=== PATIENT | female | born 1990 | race Caucasian/White ===

== ENCOUNTER → 2020-10-29 | Outpatient (CLI) | payer OTHER | END | disposition home or self-care (01) | LOC: LABWHC1 14:12 | PROVIDERS: ATTEND Nurse Practitioner Family | DX: L70.0 Acne vulgaris (principal); L30.8 Other specified dermatitis; D22.5 Melanocytic nevi of trunk | CPT/HCPCS: 36415; 84702 ==

== ENCOUNTER 2020-12-25 14:32 | Emergency (ER) | payer OTHER ==
[2020-12-25 14:44] VITALS: RESP 16; TEMP 98.3
[2020-12-25] MEDS ORDERED: SODIUM CHLORIDE 0.9% 1,000 ML IV STA (15:10)
[2020-12-25] MEDS ORDERED: ONDANSETRON 4 MG/2 ML VIAL IVP STA (15:11)
--- NOTE | 2020-12-25 15:27 | ED ---
General Adult HPI - General Chief complaint: Recheck/Abnormal Lab/Rx Stated complaint: post-op, vomiting Time Seen by Provider: 12/25/20 15:03 Source: patient, RN notes reviewed, old records reviewed Mode of arrival: ambulatory Limitations: no limitations - History of Present Illness Initial comments: 30-year-old female presenting for evaluation of abdominal distention, constipation, vomiting. Patient is 4 days postop left scalp and appendectomy performed at outside hospital. Patient was on vacation over the December and developed appendicitis. She was operated on on December 21. She was discharged in his had some continued abdominal discomfort. No measured fevers. She's had some subjective temperature fluctuation. Patient has had one episode of vomiting. She has not had a bowel movement since prior to the surgery. No drainage or erythema at her incision sites. - Related Data Home Medications Medication Instructions Recorded Confirmed HYDROcodone/APAP 5-325MG [[place] 1 tab PO Q4H PRN 12/25/20 12/25/20 5-325] ISOtretinoin [Accutane] 20 mg PO HS@2030 12/25/20 12/25/20 Ibuprofen [Motrin Ib] 400 mg PO Q8H PRN 12/25/20 12/25/20 Allergies Allergy/AdvReac Type Severity Reaction Status Date / Time cefaclor [From Ceclor] Allergy Rash/Hives Verified 12/25/20 16:55 minocycline Allergy Rash/Hives Verified 12/25/20 16:55 Penicillins Allergy Rash/Hives Verified 12/25/20 16:55 Sulfa (Sulfonamide Allergy Rash/Hives Verified 12/25/20 16:55 Antibiotics) sulfamethoxazole Allergy Rash/Hives Verified 12/25/20 16:55 [From Bactrim] trimethoprim [From Bactrim] Allergy Rash/Hives Verified 12/25/20 16:55 Review of Systems ROS Statement: Those systems with pertinent positive or pertinent negative responses have been documented in the HPI. ROS Other: All systems not noted in ROS Statement are negative. Past Medical History Past Medical History: No Reported History History of Any Multi-Drug Resistant Organisms: None Reported Past Surgical History: Appendectomy Past Psychological History: No Psychological Hx Reported Smoking Status: Never smoker Past Alcohol Use History: Occasional Past Drug Use History: None Reported General Exam Limitations: no limitations General appearance: alert, in no apparent distress Head exam: Present: atraumatic, normocephalic Eye exam: Present: normal appearance, PERRL ENT exam: Present: normal exam Neck exam: Present: normal inspection. Absent: tenderness, meningismus Respiratory exam: Present: normal lung sounds bilaterally. Absent: respiratory distress Cardiovascular Exam: Present: normal rhythm, tachycardia GI/Abdominal exam: Present: soft, distended, tenderness (Very minimal tende rness, appropriate postoperative tenderness.), other (Incisions are well-healed, no Drainage, minimal surrounding erythema.). Absent: guarding, rebound, rigid Extremities exam: Present: normal inspection, normal capillary refill. Absent: pedal edema, calf tenderness Neurological exam: Present: alert, oriented X3, CN II-XII intact. Absent: motor sensory deficit Psychiatric exam: Present: normal affect, normal mood Skin exam: Present: warm, dry, intact. Absent: cyanosis, diaphoretic Course Vital Signs 12/25/20 14:42 Temperature 98.3 F Pulse Rate 111 H Respiratory 16 Rate Blood Pressure 107/69 O2 Sat by Pulse 98 Oximetry Medical Decision Making - Medical Decision Making 30-year-old female with postoperativepatient, abdominal pain, one episode of vomiting. No fever. Patient well-appearing with stable vitals. She has appropriate tenderness following laparoscopic surgery. Incisions are well- healed. X-ray performed that show concern for an ileus and some lower con stipation. She has a mild leukocytosis at 16. May be reactive or may be post emesis. Other laboratory testing including electrolytes is within normal limits, stable hemoglobin. She has a 3+ ketones consistent with dehydration. She's given IV fluids. She also is given an enema and has a large stool output while in the emergency department. She is feeling better and would like a trial at home. She's given strict return parameters including no flatus, no BM, fever, worsening pain. - Lab Data Result diagrams: 12/25/20 15:20 12/25/20 15:20 Lab Results 12/25/20 12/25/20 12/25/20 Range/Units 15:20 15:20 15:20 WBC 15.9 H (3.8-10.6) k/uL RBC 4.62 (3.80-5.40) m/uL Hgb 14.1 (11.4-16.0) gm/dL Hct 41.1 (34.0-46.0) % MCV 89.0 (80.0-100.0) fL MCH 30.5 (25.0-35.0) pg MCHC 34.2 (31.0-37.0) g/dL RDW 12.7 (11.5-15.5) % Plt Count 300 (150-450) k/uL MPV 7.8 Neutrophils % 91 % Lymphocytes % 3 % Monocytes % 3 % Eosinophils % 1 % Basophils % 0 % Neutrophils # 14.5 H (1.3-7.7) k/uL Lymphocytes # 0.5 L (1.0-4.8) k/uL Monocytes # 0.5 (0-1.0) k/uL Eosinophils # 0.2 (0-0.7) k/uL Basophils # 0.0 (0-0.2) k/uL PT 10.5 (9.0-12.0) sec INR 1.0 (<1.2) APTT 23.0 (22.0-30.0) sec Sodium (137-145) mmol/L Potassium (3.5-5.1) mmol/L Chloride (98-107) mmol/L Carbon Dioxide (22-30) mmol/L Anion Gap mmol/L BUN (7-17) mg/dL Creatinine (0.52-1.04) mg/dL Est GFR (CKD-EPI)AfAm (>60 ml/min/1.73 sqM) Est GFR (CKD-EPI)NonAf (>60 ml/min/1.73 sqM) Glucose (74-99) mg/dL Plasma Lactic Acid [place] (0.7-2.0) mmol/L Calcium (8.4-10.2) mg/dL Total Bilirubin (0.2-1.3) mg/dL AST (14-36) U/L ALT (4-34) U/L Alkaline Phosphatase (38-126) U/L Total Protein (6.3-8.2) g/dL Albumin (3.5-5.0) g/dL Amylase (30-110) U/L Lipase (23-300) U/L Urine Color Yellow Urine Appearance Clear (Clear) Urine pH 6.0 (5.0-8.0) Ur Specific [place] 1.018 (1.001-1.035) Urine Protein Trace H (Negative) Urine Glucose (UA) Negative (Negative) Urine Ketones 3+ H (Negative) Urine Blood Negative (Negative) Urine Nitrite Negative (Negative) Urine Bilirubin Negative (Negative) Urine Urobilinogen 3.0 (<2.0) mg/dL Ur Leukocyte Esterase Negative (Negative) Urine HCG, Qual (Not Detectd) 12/25/20 12/25/20 12/25/20 Range/Units 15:20 15:20 15:20 WBC (3.8-10.6) k/uL RBC (3.80-5.40) m/uL Hgb (11.4-16.0) gm/dL Hct (34.0-46.0) % MCV (80.0-100.0) fL MCH (25.0-35.0) pg MCHC (31.0-37.0) g/dL RDW (11.5-15.5) % Plt Count (150-450) k/uL MPV Neutrophils % % Lymphocytes % % Monocytes % % Eosinophils % % Basophils % % Neutrophils # (1.3-7.7) k/uL Lymphocytes # (1.0-4.8) k/uL Monocytes # (0-1.0) k/uL Eosinophils # (0-0.7) k/uL Basophils # (0-0.2) k/uL PT (9.0-12.0) sec INR (<1.2) APTT (22.0-30.0) sec Sodium 136 L (137-145) mmol/L Potassium 4.0 (3.5-5.1) mmol/L Chloride 103 (98-107) mmol/L Carbon Dioxide 26 (22-30) mmol/L Anion Gap 7 mmol/L BUN 10 (7-17) mg/dL Creatinine 0.69 (0.52-1.04) mg/dL Est GFR (CKD-EPI)AfAm >90 (>60 ml/min/1.73 sqM) Est GFR (CKD-EPI)NonAf >90 (>60 ml/min/1.73 sqM) Glucose 112 H (74-99) mg/dL Plasma Lactic Acid [place] 0.9 (0.7-2.0) mmol/L Calcium 8.9 (8.4-10.2) mg/dL Total Bilirubin 0.9 (0.2-1.3) mg/dL AST 35 (14-36) U/L ALT 24 (4-34) U/L Alkaline Phosphatase 173 H (38-126) U/L Total Protein 6.0 L (6.3-8.2) g/dL Albumin 3.4 L (3.5-5.0) g/dL Amylase 41 (30-110) U/L Lipase 36 (23-300) U/L Urine Color Urine Appearance (Clear) Urine pH (5.0-8.0) Ur Specific [place] (1.001-1.035) Urine Protein (Negative) Urine Glucose (UA) (Negative) Urine Ketones (Negative) Urine Blood (Negative) Urine Nitrite (Negative) Urine Bilirubin (Negative) Urine Urobilinogen (<2.0) mg/dL Ur Leukocyte Esterase (Negative) Urine HCG, Qual Not Detected (Not Detectd) Disposition Clinical Impression: Postoperative ileus, Abdominal pain, Dehydration, Status post appendectomy Disposition: HOME SELF-CARE Condition: Good Instructions (If sedation given, give patient instructions): Abdominal Pain (ED), Ileus (ED), Dehydration (ED) Additional Instructions: Please return with worsening or changing symptoms. Return with vomiting or fever. Return with absent bowel movement or not passing gas. Is patient prescribed a controlled substance at d/c from ED?: No Referrals: None,Stated [Primary Care Provider] - 1-2 days Scot Day [STAFF PHYSICIAN] - 1-2 days Татьяна Chang MD [STAFF PHYSICIAN] - 1-2 days Time of Disposition: 18:09
[2020-12-25 15:35] LABS: Basophils % (A) 0 %; Eosinophils # (A) 0.2 k/uL (0-0.7); Eosinophils % (A) 1 %; HCT 41.1 % (34.0-46.0); HGB 14.1 gm/dL (11.4-16.0); Lymphocytes # (A) 0.5 k/uL (1.0-4.8); Lymphocytes % (A) 3 %; MCH 30.5 pg (25.0-35.0); MCHC 34.2 g/dL (31.0-37.0); Mean Platelet Volume 7.8; Monocytes # (A) 0.5 k/uL (0-1.0); Monocytes % (A) 3 %; Neutrophils # (A) 14.5 k/uL (1.3-7.7); Neutrophils % (A) 91 %; Platelet Count 300 k/uL (150-450); RBC 4.62 m/uL (3.80-5.40); RDW 12.7 % (11.5-15.5); WBC 15.9 k/uL (3.8-10.6)
[2020-12-25 15:44] LABS: Prothrombin Time 10.5 sec (9.0-12.0)
[2020-12-25 15:45] LABS: ALT 24 U/L (4-34); AST 35 U/L (14-36); African American GFR (CKD) >90 (>60 ml/min/1.73 sqM); Albumin 3.4 g/dL (3.5-5.0); Alkaline Phosphatase 173 U/L (38-126); Amylase 41 U/L (30-110); Anion Gap 7 mmol/L; Blood Urea Nitrogen 10 mg/dL (7-17); Calcium 8.9 mg/dL (8.4-10.2); Carbon Dioxide 26 mmol/L (22-30); Chloride 103 mmol/L (98-107); Glucose 112 mg/dL (74-99); Lipase 36 U/L (23-300); Non-African American GFR(CKD) >90 (>60 ml/min/1.73 sqM); Sodium 136 mmol/L (137-145); Total Bilirubin 0.9 mg/dL (0.2-1.3)
--- NOTE | 2020-12-25 15:56 | XR ---
EXAMINATION TYPE: XR KUB DATE OF EXAM: 12/25/2020 Comparison: None Clinical History: 30-year-old female abdominal pain, status post appendectomy on 12/21/2020 Findings: Prominent air throughout the colon which measures up to 5.4 cm in caliber. Mild stool wording. Some p rominent small bowel loops measuring up to 2.8 cm may have small air-fluid levels. Multiple areas of skin toyin likely relating to laparoscopy portals. IUD is present. No evidence for free intraperito tasha air. Impression: Prominent air throughout the colon. Some prominent small bowel loops measuring up to 2.8 cm show smal l air-fluid levels. Consider a generalized ileus. Skin toyin at various sites, likely relating to l aparoscopy portals. No free air.
[2020-12-25 16:31] LABS: Appearance,Urine Clear (Clear); Bilirubin,Urine Negative (Negative); Blood,Urine Negative (Negative); Color,Urine Yellow; Glucose,Urine (UA) Negative (Negative); Ketones,Urine 3+ (Negative); Leukocyte Esterase,Urine Negative (Negative); Nitrite,Urine Negative (Negative); Protein,Urine Trace (Negative); Specific Gravity,Urine 1.018 (1.001-1.035)
[2020-12-25] MEDS ORDERED: KETOROLAC 15 MG/ML 1 ML VIAL IVP STA (16:36)
[2020-12-25] MEDS ORDERED: SODIUM CHLORIDE 0.9% 500 ML 500 ML IV ONE (16:36)
[2020-12-25 18:52] VITALS: BP 124/79; PULSE 92
== END 2020-12-25 18:52 | disposition home or self-care (01) ==
LOC: EC 14:32
DX: K91.89 Other postprocedural complications and disorders of digestive system (principal); K56.7 Ileus, unspecified; E86.0 Dehydration; Z88.0 Allergy status to penicillin; Z88.1 Allergy status to other antibiotic agents; Z88.2 Allergy status to sulfonamides; Z90.89 Acquired absence of other organs
CPT/HCPCS: 36415; 80053; 82150; 83605; 83690; 85025; 85610; 85730; 81003; 81025; 74018; 96374; 96375; 96361 ×2; 99284; J2405; J1885

== ENCOUNTER 2020-12-25 22:02 | Inpatient (IN) | payer OTHER ==
[2020-12-25] MEDS ORDERED: ONDANSETRON 4 MG/2 ML VIAL IVP STA (22:24)
[2020-12-25] MEDS ORDERED: MORPHINE SULFATE 4 MG/ML SYRINGE IV STA (22:24)
[2020-12-25] MEDS ORDERED: SODIUM CHLORIDE 0.9% 1,000 ML IV STA (22:24)
--- NOTE | 2020-12-25 22:25 | ED ---
Recheck HPI - General Chief Complaint: Recheck/Abnormal Lab/Rx Stated Complaint: Post op fever Time Seen by Provider: 12/25/20 22:20 Source: patient, RN notes reviewed, old records reviewed Mode of arrival: ambulatory Limitations: no limitations - History of Present Illness Initial Comments: This is a 30-year-old female DF for evaluation. Patient is postop appendix surgery. Outside facility. Patient seen in ER earlier today in regards to postoperative abdominal pain. Told to come back if pain persists or fever develops MD Complaint: abnormal lab (pain post appendix pain) -: days(s) Returns Today for: persistent/worsening pain related to initial visit Symptoms Since Prior Visit: no new symptoms Context: other (none) Associated Symptoms: none Treatments Prior to Arrival: other (none) - Related Data Home Medications Medication Instructions Recorded Confirmed HYDROcodone/APAP 5-325MG [[place] 1 tab PO Q4H PRN 12/25/20 12/25/20 5-325] ISOtretinoin [Accutane] 20 mg PO HS@2030 12/25/20 12/25/20 Ibuprofen [Motrin Ib] 400 mg PO Q8H PRN 12/25/20 12/25/20 Allergies Allergy/AdvReac Type Severity Reaction Status Date / Time cefaclor [From Ceclor] Allergy Rash/Hives Verified 12/25/20 23:40 minocycline Allergy Rash/Hives Verified 12/25/20 23:40 Penicillins Allergy Rash/Hives Verified 12/25/20 23:40 Sulfa (Sulfonamide Allergy Rash/Hives Verified 12/25/20 23:40 Antibiotics) sulfamethoxazole Allergy Rash/Hives Verified 12/25/20 23:40 [From Bactrim] trimethoprim [From Bactrim] Allergy Rash/Hives Verified 12/25/20 23:40 Review of Systems ROS Statement: Those systems with pertinent positive or pertinent negative responses have been documented in the HPI. ROS Other: All systems not noted in ROS Statement are negative. Past Medical History Past Medical History: No Reported History History of Any Multi-Drug Resistant Organisms: None Reported Past Surgical History: Appendectomy Past Psychological History: No Psychological Hx Reported Smoking Status: Never smoker Past Alcohol Use History: Occasional Past Drug Use History: None Reported General Exam Limitations: no limitations General appearance: alert, in no apparent distress Head exam: Present: atraumatic, normocephalic, normal inspection Eye exam: Present: normal appearance, PERRL, EOMI. Absent: scleral icterus, conjunctival injection, periorbital swelling ENT exam: Present: normal exam, mucous membranes moist Neck exam: Present: normal inspection. Absent: tenderness, meningismus, lymphadenopathy Respiratory exam: Present: normal lung sounds bilaterally. Absent: respiratory distress, wheezes, rales, rhonchi, stridor Cardiovascular Exam: Present: regular rate, normal rhythm, normal heart sounds. Absent: systolic murmur, diastolic murmur, rubs, gallop, clicks GI/Abdominal exam: Present: soft, normal bowel sounds. Absent: distended, tenderness, guarding, rebound, rigid Extremities exam: Present: normal inspection, full ROM, normal capillary refill. Absent: tenderness, pedal edema, joint swelling, calf tenderness Back exam: Present: normal inspection Neurological exam: Present: alert, oriented X3, CN II-XII intact Psychiatric exam: Present: normal affect, normal mood Skin exam: Present: warm, dry, intact, normal color. Absent: rash Course Vital Signs 12/25/20 12/25/20 22:04 22:49 Temperature 98 F Pulse Rate 105 H 88 Respiratory 16 22 Rate Blood Pressure 107/67 109/79 O2 Sat by Pulse 96 98 Oximetry - Reevaluation(s) Reevaluation #1: 12/25/20 22:30 Medical record is reviewed 12/25/20 22:30 Patient's prior ER visit has been reviewed Medical Decision Making - Medical Decision Making 30 female to the ER for evaluation. Patient comes in for persistent abdominal pain after surgery she is about 4-5 days NOW. Surgery happened on vacation she is unsure Dr. her perform the surgery were patient presents today for evaluation of pain. Patient will be admitted as she has postoperative abscess - Lab Data Result diagrams: 12/25/20 22:33 12/25/20 22:33 Lab Results 12/25/20 12/25/20 12/25/20 Range/Units 22:33 22:33 22:33 WBC 13.3 H (3.8-10.6) k/uL RBC 4.19 (3.80-5.40) m/uL Hgb 12.7 (11.4-16.0) gm/dL Hct 37.4 (34.0-46.0) % MCV 89.3 (80.0-100.0) fL MCH 30.2 (25.0-35.0) pg MCHC 33.9 (31.0-37.0) g/dL RDW 13.3 (11.5-15.5) % Plt Count 284 (150-450) k/uL MPV 7.8 Neutrophils % 85 % Lymphocytes % 9 % Monocytes % 4 % Eosinophils % 1 % Basophils % 0 % Neutrophils # 11.3 H (1.3-7.7) k/uL Lymphocytes # 1.1 (1.0-4.8) k/uL Monocytes # 0.5 (0-1.0) k/uL Eosinophils # 0.1 (0-0.7) k/uL Basophils # 0.1 (0-0.2) k/uL PT 10.5 (9.0-12.0) sec INR 1.0 (<1.2) APTT 23.1 (22.0-30.0) sec Sodium (137-145) mmol/L Potassium (3.5-5.1) mmol/L Chloride (98-107) mmol/L Carbon Dioxide (22-30) mmol/L Anion Gap mmol/L BUN (7-17) mg/dL Creatinine (0.52-1.04) mg/dL Est GFR (CKD-EPI)AfAm (>60 ml/min/1.73 sqM) Est GFR (CKD-EPI)NonAf (>60 ml/min/1.73 sqM) Glucose (74-99) mg/dL Plasma Lactic Acid [place] (0.7-2.0) mmol/L Calcium (8.4-10.2) mg/dL Total Bilirubin (0.2-1.3) mg/dL AST (14-36) U/L ALT (4-34) U/L Alkaline Phosphatase (38-126) U/L Creatine Kinase (30-135) U/L Total Protein (6.3-8.2) g/dL Albumin (3.5-5.0) g/dL Amylase (30-110) U/L Lipase (23-300) U/L Urine Color Light Yellow Urine Appearance Clear (Clear) Urine pH 6.0 (5.0-8.0) Ur Specific [place] 1.029 (1.001-1.035) Urine Protein Negative (Negative) Urine Glucose (UA) Negative (Negative) Urine Ketones 1+ H (Negative) Urine Blood Negative (Negative) Urine Nitrite Negative (Negative) Urine Bilirubin Negative (Negative) Urine Urobilinogen <2.0 (<2.0) mg/dL Ur Leukocyte Esterase Negative (Negative) 12/25/20 12/25/20 Range/Units 22:33 22:33 WBC (3.8-10.6) k/uL RBC (3.80-5.40) m/uL Hgb (11.4-16.0) gm/dL Hct (34.0-46.0) % MCV (80.0-100.0) fL MCH (25.0-35.0) pg MCHC (31.0-37.0) g/dL RDW (11.5-15.5) % Plt Count (150-450) k/uL MPV Neutrophils % % Lymphocytes % % Monocytes % % Eosinophils % % Basophils % % Neutrophils # (1.3-7.7) k/uL Lymphocytes # (1.0-4.8) k/uL Monocytes # (0-1.0) k/uL Eosinophils # (0-0.7) k/uL Basophils # (0-0.2) k/uL PT (9.0-12.0) sec INR (<1.2) APTT (22.0-30.0) sec Sodium 138 (137-145) mmol/L Potassium 3.7 (3.5-5.1) mmol/L Chloride 106 (98-107) mmol/L Carbon Dioxide 23 (22-30) mmol/L Anion Gap 9 mmol/L BUN 9 (7-17) mg/dL Creatinine 0.70 (0.52-1.04) mg/dL Est GFR (CKD-EPI)AfAm >90 (>60 ml/min/1.73 sqM) Est GFR (CKD-EPI)NonAf >90 (>60 ml/min/1.73 sqM) Glucose 127 H (74-99) mg/dL Plasma Lactic Acid [place] 0.9 (0.7-2.0) mmol/L Calcium 8.5 (8.4-10.2) mg/dL Total Bilirubin 0.5 (0.2-1.3) mg/dL AST 31 (14-36) U/L ALT 22 (4-34) U/L Alkaline Phosphatase 153 H (38-126) U/L Creatine Kinase 28 L (30-135) U/L Total Protein 5.8 L (6.3-8.2) g/dL Albumin 3.2 L (3.5-5.0) g/dL Amylase 39 (30-110) U/L Lipase 46 (23-300) U/L Urine Color Urine Appearance (Clear) Urine pH (5.0-8.0) Ur Specific [place] (1.001-1.035) Urine Protein (Negative) Urine Glucose (UA) (Negative) Urine Ketones (Negative) Urine Blood (Negative) Urine Nitrite (Negative) Urine Bilirubin (Negative) Urine Urobilinogen (<2.0) mg/dL Ur Leukocyte Esterase (Negative) - Radiology Data Radiology results: report reviewed (CT abdomen and pelvis positive postoperative abscess), image reviewed Disposition Clinical Impression: Abdominal pain, Postoperative abscess Disposition: ADMITTED IP TO THIS HOSP Condition: Fair Is patient prescribed a controlled substance at d/c from ED?: No Referrals: None,Stated [Primary Care Provider] - 1-2 days
[2020-12-25 22:50] LABS: Basophils # (A) 0.1 k/uL (0-0.2); Basophils % (A) 0 %; Eosinophils # (A) 0.1 k/uL (0-0.7); Eosinophils % (A) 1 %; HCT 37.4 % (34.0-46.0); HGB 12.7 gm/dL (11.4-16.0); Lymphocytes # (A) 1.1 k/uL (1.0-4.8); Lymphocytes % (A) 9 %; MCH 30.2 pg (25.0-35.0); MCHC 33.9 g/dL (31.0-37.0); MCV 89.3 fL (80.0-100.0); Mean Platelet Volume 7.8; Monocytes # (A) 0.5 k/uL (0-1.0); Monocytes % (A) 4 %; Neutrophils # (A) 11.3 k/uL (1.3-7.7); Neutrophils % (A) 85 %; Platelet Count 284 k/uL (150-450); RBC 4.19 m/uL (3.80-5.40); RDW 13.3 % (11.5-15.5); WBC 13.3 k/uL (3.8-10.6)
[2020-12-25 22:58] LABS: Partial Thromboplastin Time 23.1 sec (22.0-30.0); Prothrombin Time 10.5 sec (9.0-12.0)
[2020-12-25 22:59] LABS: ALT 22 U/L (4-34); AST 31 U/L (14-36); African American GFR (CKD) >90 (>60 ml/min/1.73 sqM); Albumin 3.2 g/dL (3.5-5.0); Alkaline Phosphatase 153 U/L (38-126); Amylase 39 U/L (30-110); Anion Gap 9 mmol/L; Blood Urea Nitrogen 9 mg/dL (7-17); Calcium 8.5 mg/dL (8.4-10.2); Carbon Dioxide 23 mmol/L (22-30); Chloride 106 mmol/L (98-107); Creatine Kinase 28 U/L (30-135); Glucose 127 mg/dL (74-99); Lipase 46 U/L (23-300); Non-African American GFR(CKD) >90 (>60 ml/min/1.73 sqM); Potassium 3.7 mmol/L (3.5-5.1); Sodium 138 mmol/L (137-145); Total Bilirubin 0.5 mg/dL (0.2-1.3); Total Protein 5.8 g/dL (6.3-8.2)
[2020-12-25 23:57] LABS: Appearance,Urine Clear (Clear); Bilirubin,Urine Negative (Negative); Blood,Urine Negative (Negative); Color,Urine Light Yellow; Glucose,Urine (UA) Negative (Negative); Ketones,Urine 1+ (Negative); Leukocyte Esterase,Urine Negative (Negative); Nitrite,Urine Negative (Negative); Protein,Urine Negative (Negative); Specific Gravity,Urine 1.029 (1.001-1.035); Urobilinogen,Urine <2.0 mg/dL (<2.0)
--- NOTE | 2020-12-26 00:03 | CT ---
EXAMINATION TYPE: CT abdomen pelvis w con DATE OF EXAM: 12/25/2020 COMPARISON: HISTORY: pain CT DLP: 897.50 mGycm Automated exposure control for dose reduction was used. CONTRAST: Performed with IV Contrast, patient injected with 100 mL of Isovue 300. There is minimal pleural thickening and fluid at the lung bases. Heart size is normal. There is no pe ricardial effusion. Liver spleen stomach pancreas gallbladder appear intact. The bile ducts are not dilated. There is no adrenal mass. Kidneys show satisfactory contrast opacification. There is no hydronephrosi s. The ureters are not dilated. There is no retroperitoneal adenopathy. Bladder distends smoothly. Th ere is IUD in the uterine fundus. Uterus is anteverted. There is no free fluid in the pelvis. There is small amount of low-density fluid in the left paracolic gutter. There is 6.2 x 4.2 cm comple x mass in the pelvis which is adjacent to the small bowel in the pelvis and contains air and fluid an d debris. This appears to be extraluminal. There are some distended gas-filled loops of large bowel i n the mid abdomen. There are surgical clips at the cecum probably from appendectomy. Appendix is not seen. The lumbar vertebra have normal alignment. There is no compression fracture. Disc spaces are normal. The bony pelvis appears intact. IMPRESSION: Complex large mass in the pelvis consistent with an abscess that may be communicating with loop of ad jacent small bowel. Follow-up recommended. There is evidence of some mild large bowel ileus. There is some fluid in the left paracolic gutter likely inflammatory.
[2020-12-26] MEDS ORDERED: ONDANSETRON 4 MG/2 ML VIAL IVP PRN (00:15)
[2020-12-26] MEDS ORDERED: NALOXONE 0.4 MG/ML 1 ML VIAL IV PRN (00:15)
[2020-12-26] MEDS ORDERED: LEVOFLOXACIN 750MG-D5W PMX 750 MG in DEXTROSE/WATER 1 150ML.BAG IVPB STA (00:18)
[2020-12-26] MEDS ORDERED: metroNIDAZOLE-NS PMX 500 MG in SALINE 1 100ML.BAG IVPB STA (00:18)
[2020-12-26] MEDS: MORPHINE SULFATE 4 MG/ML SYRINGE IV PRN ×2 (02:03→06:34)
[2020-12-26] MEDS ORDERED: HYDROcodone/APAP 5-325MG 1 EACH TAB PO STA (06:25)
[2020-12-26] MEDS ORDERED: ACETAMINOPHEN IV (For NPO) 1,000 MG in EMPTY BAG 1 BAG IVPB ONE (09:26)
--- NOTE | 2020-12-26 09:32 | P.GSHP ---
History of Present Illness H&P Date: 12/26/20 Chief Complaint: Abdominal abscess 30-year-old female presents to the hospital yesterday twice with complaints of abdominal pain. She underwent laparoscopic appendectomy on Tuesday and was discharged shortly after surgery was performed. She says that since the surgery she has felt some mild nausea and bloating. Some lower abdominal pain. Some pressure-like sensation. Yesterday she had a enema with bowel function and felt a little bit better. She went home from the ER only to have a high fever and come back to the ER for that reason. CAT scan was performed. Her white blood cell count elevated at 13. CAT scan demonstrated a greater than 6 cm abscess between small bowel loops containing both liquid and air. Patient still feels nauseated. No vomiting. No bowel function. - Review of Systems Comment: The patient denies any acute changes in vision or hearing, no dysphagia or odynophagia, no chest pain or shortness of breath, no dysuria or hematuria, no headache, no runny nose, no rectal bleeding or melena, no unexplained weight loss Past Medical History Past Medical History: No Reported History History of Any Multi-Drug Resistant Organisms: None Reported Past Surgical History: Appendectomy Past Psychological History: No Psychological Hx Reported Smoking Status: Never smoker Past Alcohol Use History: Occasional Past Drug Use History: None Reported Medications and Allergies Home Medications Medication Instructions Recorded Confirmed Type HYDROcodone/APAP 5-325MG [[place] 1 tab PO Q4H PRN 12/25/20 12/25/20 History 5-325] ISOtretinoin [Accutane] 20 mg PO HS@2030 12/25/20 12/25/20 History Ibuprofen [Motrin Ib] 400 mg PO Q8H PRN 12/25/20 12/25/20 History Allergies Allergy/AdvReac Type Severity Reaction Status Date / Time cefaclor [From Ceclor] Allergy Rash/Hives Verified 12/25/20 23:40 minocycline Allergy Rash/Hives Verified 12/25/20 23:40 Penicillins Allergy Rash/Hives Verified 12/25/20 23:40 Sulfa (Sulfonamide Allergy Rash/Hives Verified 12/25/20 23:40 Antibiotics) sulfamethoxazole Allergy Rash/Hives Verified 12/25/20 23:40 [From Bactrim] trimethoprim [From Bactrim] Allergy Rash/Hives Verified 12/25/20 23:40 Surgical - Exam Vital Signs Temp Pulse Resp BP Pulse Ox 98 F 105 H 16 107/67 96 12/25/20 22:04 12/25/20 22:04 12/25/20 22:04 12/25/20 22:04 12/25/20 22:04 Physical exam: General: Well-developed, well-nourished HEENT: Normocephalic, sclerae nonicteric Abdomen: Mildly distended, infraumbilical suprapubic and left lower quadrant incisions with toyin in place, mild diffuse tenderness increase in the lower a bdomen, no erythema or drainage from incision sites Extremities: No edema Neuro: Alert and oriented Results - Labs 12/25/20 22:33 12/25/20 22:33 Abnormal Lab Results - Last 24 Hours (Table) 12/25/20 12/25/20 12/25/20 Range/Units 22:33 22:33 22:33 WBC 13.3 H (3.8-10.6) k/uL Neutrophils # 11.3 H (1.3-7.7) k/uL Glucose 127 H (74-99) mg/dL Alkaline Phosphatase 153 H (38-126) U/L Creatine Kinase 28 L (30-135) U/L Total Protein 5.8 L (6.3-8.2) g/dL Albumin 3.2 L (3.5-5.0) g/dL Urine Ketones 1+ H (Negative) Diabetes panel 12/25/20 Range/Units 22:33 Sodium 138 (137-145) mmol/L Potassium 3.7 (3.5-5.1) mmol/L Chloride 106 (98-107) mmol/L Carbon Dioxide 23 (22-30) mmol/L BUN 9 (7-17) mg/dL Creatinine 0.70 (0.52-1.04) mg/dL Glucose 127 H (74-99) mg/dL Calcium 8.5 (8.4-10.2) mg/dL AST 31 (14-36) U/L ALT 22 (4-34) U/L Alkaline Phosphatase 153 H (38-126) U/L Total Protein 5.8 L (6.3-8.2) g/dL Albumin 3.2 L (3.5-5.0) g/dL Calcium panel 12/25/20 Range/Units 22:33 Calcium 8.5 (8.4-10.2) mg/dL Albumin 3.2 L (3.5-5.0) g/dL Pituitary panel 12/25/20 Range/Units 22:33 Sodium 138 (137-145) mmol/L Potassium 3.7 (3.5-5.1) mmol/L Chloride 106 (98-107) mmol/L Carbon Dioxide 23 (22-30) mmol/L BUN 9 (7-17) mg/dL Creatinine 0.70 (0.52-1.04) mg/dL Glucose 127 H (74-99) mg/dL Calcium 8.5 (8.4-10.2) mg/dL Adrenal panel 12/25/20 Range/Units 22:33 Sodium 138 (137-145) mmol/L Potassium 3.7 (3.5-5.1) mmol/L Chloride 106 (98-107) mmol/L Carbon Dioxide 23 (22-30) mmol/L BUN 9 (7-17) mg/dL Creatinine 0.70 (0.52-1.04) mg/dL Glucose 127 H (74-99) mg/dL Calcium 8.5 (8.4-10.2) mg/dL Total Bilirubin 0.5 (0.2-1.3) mg/dL AST 31 (14-36) U/L ALT 22 (4-34) U/L Alkaline Phosphatase 153 H (38-126) U/L Total Protein 5.8 L (6.3-8.2) g/dL Albumin 3.2 L (3.5-5.0) g/dL Assessment and Plan (1) Postoperative abscess Narrative/Plan: 30-year-old female with abscess post appendectomy. Options reviewed. Recommend laparoscopic possible open drainage at this time. We will schedule for lapa roscopic drainage abdominal abscess, possible laparotomy. Potential need for bowel resection discussed with patient. Risks of bleeding, infection, recurrent abscess, scarring, bladder in bowel injury, leak, possible need for long-term antibiotics. She understands and wishes to proceed. We'll consult hospitalist and infectious disease service. Surgery will be scheduled for today however patient informed that the operating room schedule is quite busy and we may have to postpone the distal tomorrow morning. Current Visit: Yes Status: Acute Code(s): T81.49XA - INFECTION FOLLOWING A PROCEDURE, OTHER SURGICAL SITE, INIT SNOMED Code(s): 805325621
[2020-12-26] MEDS ORDERED: HEPARIN SODIUM,PORCINE/PF 5,000 UNIT/0.5 ML SYRINGE SQ ONE (09:48)
[2020-12-26] MEDS: D5-0.45% NACL WITH KCL 20MEQ/L 1,000 ML IV SCH ×3 (09:55→21:33)
[2020-12-26] MEDS: HEPARIN SODIUM,PORCINE/PF 5,000 UNIT/0.5 ML SYRINGE SQ SCH ×3 (10:00→23:36)
[2020-12-26] MEDS: HYDROmorphone 1 MG/ML 1 ML SYRINGE IVP PRN ×2 (10:17→14:43)
[2020-12-26] MEDS: metroNIDAZOLE-NS PMX 500 MG in SALINE 1 100ML.BAG IVPB SCH ×2 (10:19→20:16)
[2020-12-26] MEDS ORDERED: LACTATED RINGERS 1,000 ML IV ONE (15:39)
--- NOTE | 2020-12-26 16:02 | P.CON ---
Consult Note - . Consult date: 12/26/20 Assessment/Plan:: Reason for consult - medical management Ms. Adam is a 30-year-old female with no significant past medical history, who [place], and had left sided abdominal pain. She underwent laparoscopic appendectomy on December 21 and discharged shortly after the surgery. Patient states since having the surgery and she felt that her left- sided abdominal pain persisted and she was also having pressure like sensation and was feeling very bloated. She states that the abdominal pain is worse in the left lower quadrant, and whenever she has to pass gas and feels that gas is moving in her belly her pain is worse. She denied having any nausea or vomiting. Patient denied having any fevers chills or rigors. Patient was in the ER yesterday for continued abdominal pain and subjective fevers with one episode of vomiting. She had x-ray of the abdomen performed showing ileus and mild leukocytosis. She was given IV fluids and fifth and anymore she had large stool output and she felt better and she was discharged home. But after going home patient started to have fever and so she came back to the ER last night again. So the patient had a CAT scan of the abdomen and pelvis last night that showed complex large mass in the pelvis consistent with an abscess that may be communicating with lupus adjacent small bowel. And evidence of large bowel ileus with some fluid in the left paracolic gutter likely inflammatory. In the ER patient's T-max is 98.3, tachycardic at 110, blood pressure 124/79 and saturating at 100% on room air. Patient had labs drawn showing white count of 13.3, hemoglobin 12.7, platelets 284. Sodium 138, but urgency 0.7, chloride 106, bicarbonate 20, bili and 9, creatinine 0.7. UA is negative for nitrites and leukocyte esterase. Urine beta-hCG negative. The patient is admitted for further management after being started on IV antibiotics in the form of aztreonam and Flagyl as the patient has multiple drug ALLERGIES REVIEW OF SYSTEMS: CONSTITUTIONAL: Fever and generalized weakness HEENT: No headache, no neck stiffness, no blurring of vision CARDIOVASCULAR: no chest pain or palpitations PULMONARY: No cough or difficulty in breathing GASTROINTESTINAL: Nausea and vomiting NEUROLOGICAL: No weakness of extremities HEMATOLOGICAL: Denies any bleeding or petechiae. GENITOURINARY: Denies any burning micturition, frequency, or urgency. MUSCULOSKELETAL/RHEUMATOLOGICAL: Denies any joint pain, swelling, or any muscle pain. ENDOCRINE: Denies polyuria polydipsia or heat or cold intolerance The rest of the 14-point review of systems is negative. Past Medical History Past Medical History: No Reported History History of Any Multi-Drug Resistant Organisms: None Reported Past Surgical History: Appendectomy Past Psychological History: No Psychological Hx Reported Smoking Status: Never smoker Past Alcohol Use History: Occasional Past Drug Use History: None Reported Medications and Allergies Home Medications Medication Instructions Recorded Confirmed Type HYDROcodone/APAP 5-325MG [[place] 1 tab PO Q4H PRN 12/25/20 12/25/20 History 5-325] ISOtretinoin [Accutane] 20 mg PO HS@2030 12/25/20 12/25/20 History Ibuprofen [Motrin Ib] 400 mg PO Q8H PRN 12/25/20 12/25/20 History Allergies Allergy/AdvReac Type Severity Reaction Status Date / Time cefaclor [From Ceclor] Allergy Rash/Hives Verified 12/25/20 23:40 minocycline Allergy Rash/Hives Verified 12/25/20 23:40 Penicillins Allergy Rash/Hives Verified 12/25/20 23:40 Sulfa (Sulfonamide Allergy Rash/Hives Verified 12/25/20 23:40 Antibiotics) sulfamethoxazole Allergy Rash/Hives Verified 12/25/20 23:40 [From Bactrim] trimethoprim [From Bactrim] Allergy Rash/Hives Verified 12/25/20 23:40 Physical Exam Vitals: Vital Signs Temp Pulse Pulse Resp BP BP Pulse Ox 12/26/20 13:43 98.5 F 75 17 110/76 98 12/26/20 07:28 97 18 117/74 99 12/26/20 06:21 81 16 123/76 98 12/26/20 01:07 76 18 120/82 100 12/26/20 00:07 82 16 113/71 99 12/25/20 23:07 75 18 110/84 100 12/25/20 22:49 88 22 109/79 98 12/25/20 22:04 98 F 105 H 16 107/67 96 PHYSICAL EXAMINATION: GENERAL: no acute distress. Complaining of pain in the left lower quadrant HEENT: Pupils are round and equally reacting to light. EOMI. No scleral icterus. No conjunctival pallor. CARDIOVASCULAR: S1 and S2 present. No murmurs, rubs, or gallops. PULMONARY: Bilateral breath sounds positive. No wheeze or crackles.. ABDOMEN: Soft, positive for tenderness in the left lower quadrant, normal bowel sounds. No guarding or rigidity. Surgical clips in place, surgical site looks clean and dry MUSCULOSKELETAL: No joint swelling or deformity. EXTREMITIES: No edema NEUROLOGICAL: Gross neurological examination did not reveal any focal deficits. SKIN:No rash Results CBC & Chem 7: 12/25/20 22:33 12/25/20 22:33 Labs: Abnormal Lab Results - Last 24 Hours (Table) 12/25/20 12/25/20 12/25/20 Range/Units 22:33 22:33 22:33 WBC 13.3 H (3.8-10.6) k/uL Neutrophils # 11.3 H (1.3-7.7) k/uL Glucose 127 H (74-99) mg/dL Alkaline Phosphatase 153 H (38-126) U/L Creatine Kinase 28 L (30-135) U/L Total Protein 5.8 L (6.3-8.2) g/dL Albumin 3.2 L (3.5-5.0) g/dL Urine Ketones 1+ H (Negative) Thrombosis Risk Factor Assmnt - Choose All That Apply Each Risk Factor Represents 2 Points: Laparoscopic surgery, Major surgery Thrombosis Risk Factor Assessment Total Risk Factor Score: 4 Thrombosis Risk Factor Assessment Level: Moderate Risk ASSESSMENT Left lower quadrant abdominal pain secondary to abscess Postoperative abscess Leukocytosis Mild protein calorie malnutrition Elevated alkaline phosphatase PLAN: Patient has been started on antibiotics in the form of his aztreonam and Flagyl due to multiple drug ALLERGIES. Nothing by mouth and IV fluids She is being boarded for surgery this afternoon for Iand D Symptomatic management with antiemetics Protonix for GI prophylaxis Heparin for DVT prophylaxis Further recommendations to follow depending on the progress of the patient Thank you for the consultation
[2020-12-26] MEDS ORDERED: SCOPOLAMINE 1.5MG/72HR PATCH TRANSDERM ONE (16:04)
[2020-12-26] MEDS: ONDANSETRON 4 MG/2 ML VIAL IVP PRN (16:04)
[2020-12-26] MEDS ORDERED: HYDROmorphone 0.5 MG/0.5 ML SYRINGE IVP ONE ×3 (16:12→18:01)
[2020-12-26] MEDS ORDERED: fentaNYL (PF) 50 MCG/ML 2 ML AMP ONE (16:52)
[2020-12-26] MEDS ORDERED: KETOROLAC 15 MG/ML 1 ML VIAL ONE (16:52)
[2020-12-26] MEDS ORDERED: DEXAMETHASONE SOD PHOSPHATE 10 MG/ML 1 ML VIAL ONE (16:52)
[2020-12-26] MEDS ORDERED: ONDANSETRON 4 MG/2 ML VIAL ONE (16:52)
[2020-12-26] MEDS ORDERED: LIDOCAINE 1% INJ 10MG/ML (20 ML MDV) ONE (16:52)
[2020-12-26] MEDS ORDERED: SUGAMMADEX SODIUM 500 MG/5 ML SDV IV ONE (16:52)
[2020-12-26] MEDS ORDERED: ROCURONIUM 10 MG/ML (5 ML VIAL) IV ONE (16:52)
[2020-12-26] MEDS ORDERED: PROPOFOL 10 MG/ML 20 ML VIAL IV ONE (16:52)
[2020-12-26] MEDS ORDERED: MIDAZOLAM 2 MG/2 ML VIAL ONE (16:52)
[2020-12-26] MEDS: AZTREONAM 2 GM in SODIUM CHLORIDE 0.9% 100 ML IVPB SCH ×2 (17:00→23:36)
[2020-12-26] MEDS ORDERED: BUPIVACAINE (PF) 0.25% 30 ML VIAL SQ ONE ×2 (17:24)
--- NOTE | 2020-12-26 17:51 | P.OP ---
Date of Procedure: 12/26/20 Procedure(s) Performed: PREOPERATIVE DIAGNOSIS: Abdominal abscess POSTOPERATIVE DIAGNOSIS: Same PROCEDURE: Laparoscopic drainage of abdominal abscess SURGEON: Nataliia EBL: 5 mL ANESTHESIA: Oral COMPLICATIONS: None OPERATIVE PROCEDURE: Patient placed in the operating table in the supine position. The patient was placed under general anesthesia. A 5 mm optical trocar was used to enter the abdomen in the left upper quadrant. Full insufflation took place to 15 mmHg. An additional 5 mm trocar was placed th rough the previous left lower quadrant 12 mm trocar site laterally. There were no adhesions seen to the abdominal wall. There was no free fluid or purulence noted. The patient's sigmoid colon was somewhat distended. The small bowel was adherent to the medial aspect of the sigmoid colon. This was where we suspected to find the abscess cavity. As I retracted the small bowel away from the sigmo id colon a purulent fluid collection was encountered. This measured approximate 6 cm as the CAT scan described. This had some fibropurulent fluid that was evacuated fully. The full extent of the abscess was thought to be visualized. The bowel was palpated and I was not able to visualize any evidence of perforation of the colon or small bowel at that time. Cultures were taken of the fluid. The trocar in the left lower quadrant was removed in a 19-[place] SOUTH drain was advanced into the abscess cavity. The drain was then sutured to the skin using a 3-0 silk stitch. The pneumoperitoneum was evacuated. The skin at the entrance trocar site was closed using a 4-0 Monocryl stitch. A another 4-0 Monocryl subcuticular suture was placed at the left lower quadrant 12 mm site adjacent to the drain. The previous toyin at the infraumbilical and suprapubic incision site were removed. I then placed skin glue on our initial trocar entrance in the left upper quadrant and the suprapubic incision site. We used Steri-Strips at the infraumbilical incision as there was mild separation of the skin superficially and I was not comfortable with skin glue in that location. No glue or Steri-Strips were placed at the drain site incision. Sterile dressings over the drain were placed. Pictures were taken and shown to the family postoperatively. DISPOSITION: Stable to recovery room
[2020-12-26] MEDS: ACETAMINOPHEN TAB 325 MG TAB PO PRN (19:30)
[2020-12-26] MEDS: HYDROcodone/APAP 5-325MG 1 EACH TAB PO PRN (21:38)
[2020-12-27] MEDS: HYDROcodone/APAP 5-325MG 1 EACH TAB PO PRN ×5 (01:38→20:12)
[2020-12-27] MEDS ORDERED: LEVOFLOXACIN 750MG-D5W PMX 750 MG in DEXTROSE/WATER 1 150ML.BAG IVPB SCH (02:00)
[2020-12-27] MEDS: metroNIDAZOLE-NS PMX 500 MG in SALINE 1 100ML.BAG IVPB SCH ×4 (03:02→20:14)
[2020-12-27] MEDS: D5-0.45% NACL WITH KCL 20MEQ/L 1,000 ML IV SCH ×3 (05:03→20:13)
[2020-12-27] MEDS: AZTREONAM 2 GM in SODIUM CHLORIDE 0.9% 100 ML IVPB SCH ×3 (07:57→23:07)
[2020-12-27] MEDS: HEPARIN SODIUM,PORCINE/PF 5,000 UNIT/0.5 ML SYRINGE SQ SCH ×3 (07:58→23:06)
[2020-12-27 08:41] LABS: Basophils % (A) 0 %; Eosinophils % (A) 0 %; HCT 36.7 % (34.0-46.0); HGB 12.5 gm/dL (11.4-16.0); Lymphocytes # (A) 0.8 k/uL (1.0-4.8); Lymphocytes % (A) 8 %; MCH 30.8 pg (25.0-35.0); MCV 90.5 fL (80.0-100.0); Mean Platelet Volume 7.9; Monocytes # (A) 0.3 k/uL (0-1.0); Monocytes % (A) 3 %; Neutrophils % (A) 88 %; Platelet Count 276 k/uL (150-450); RBC 4.05 m/uL (3.80-5.40); WBC 10.2 k/uL (3.8-10.6)
[2020-12-27 08:58] LABS: ALT 17 U/L (4-34); AST 19 U/L (14-36); African American GFR (CKD) >90 (>60 ml/min/1.73 sqM); Albumin 2.9 g/dL (3.5-5.0); Albumin/Globulin Ratio 1.2; Alkaline Phosphatase 114 U/L (38-126); Anion Gap 6 mmol/L; Blood Urea Nitrogen 7 mg/dL (7-17); Calcium 8.8 mg/dL (8.4-10.2); Carbon Dioxide 24 mmol/L (22-30); Chloride 107 mmol/L (98-107); Globulin 2.5 g/dL; Glucose 163 mg/dL (74-99); Non-African American GFR(CKD) >90 (>60 ml/min/1.73 sqM); Potassium 4.8 mmol/L (3.5-5.1); Sodium 137 mmol/L (137-145); Total Bilirubin 0.3 mg/dL (0.2-1.3); Total Protein 5.4 g/dL (6.3-8.2)
[2020-12-27] MEDS ORDERED: PANTOPRAZOLE 40 MG/10 ML VIAL IV SCH (09:00)
--- NOTE | 2020-12-27 10:12 | P.PN ---
Subjective Progress Note Date: 12/27/20 Principal diagnosis: Abdominal abscess Patient feels better today. She has ambulated. Drain is seropurulent. She is afebrile. White blood cell count normalized. Objective - Vital Signs Vital signs: Vital Signs Temp 97.7 F 12/27/20 06:51 Pulse 53 L 12/27/20 06:51 Resp 17 12/27/20 06:51 BP 97/62 12/27/20 06:51 Pulse Ox 97 12/27/20 06:51 Intake & Output 12/26/20 12/27/20 12/27/20 18:59 06:59 18:59 Intake Total 900 Output Total 85 160 Balance 815 -160 Intake: IV 900 Output: Drainage 160 Abdomen 160 Estimated Blood Loss 85 Other: # Voids 1 2 - Exam Abdomen: Soft, nondistended, mild diffuse tenderness, incisions clean and dry, drain in place - Labs CBC & Chem 7: 12/27/20 08:00 12/27/20 08:00 Labs: Abnormal Lab Results - Last 24 Hours (Table) 12/27/20 12/27/20 Range/Units 08:00 08:00 Neutrophils # 9.0 H (1.3-7.7) k/uL Lymphocytes # 0.8 L (1.0-4.8) k/uL Glucose 163 H (74-99) mg/dL Total Protein 5.4 L (6.3-8.2) g/dL Albumin 2.9 L (3.5-5.0) g/dL Microbiology - Last 24 Hours (Table) 12/26/20 17:30 Gram Stain - Preliminary Aspirate Body Fluid Culture - Preliminary 12/26/20 17:30 Anaerobic Culture - Preliminary Aspirate 12/26/20 17:30 Fungal Culture - Preliminary Aspirate Assessment and Plan (1) Postoperative abscess Narrative/Plan: Patient improving at this time. Continue drain to suction. Continue antibiotics. Follow cultures. Keep nothing by mouth until bowel function improved. Current Visit: Yes Status: Acute Code(s): T81.49XA - INFECTION FOLLOWING A PROCEDURE, OTHER SURGICAL SITE, INIT SNOMED Code(s): 293604231
--- NOTE | 2020-12-27 11:40 | P.PN ---
Subjective Reason for consult - medical management Ms. Adam is a 30-year-old female with no significant past medical history, who went up north on a vacation trip, and had left sided abdominal pain. She underwent laparoscopic appendectomy on December 21 and discharged shortly after the surgery. Patient states since having the surgery and she felt that her left- sided abdominal pain persisted and she was also having pressure like sensation and was feeling very bloated. She states that the abdominal pain is worse in the left lower quadrant, and whenever she has to pass gas and feels that gas is moving in her belly her pain is worse. She denied having any nausea or vomiting. Patient denied having any fevers chills or rigors. Patient was in the ER yesterday for continued abdominal pain and subjective fevers with one episode of vomiting. She had x-ray of the abdomen performed showing ileus and mild leukocytosis. She was given IV fluids and fifth and anymore she had large stool output and she felt better and she was discharged home. But after going home patient started to have fever and so she came back to the ER last night again. So the patient had a CAT scan of the abdomen and pelvis last night that showed complex large mass in the pelvis consistent with an abscess that may be communicating with lupus adjacent small bowel. And evidence of large bowel ileus with some fluid in the left paracolic gutter likely inflammatory. In the ER patient's T-max is 98.3, tachycardic at 110, blood pressure 124/79 and saturating at 100% on room air. Patient had labs drawn showing white count of 13.3, hemoglobin 12.7, platelets 284. Sodium 138, but urgency 0.7, chloride 106, bicarbonate 20, bili and 9, creatinine 0.7. UA is negative for nitrites and leukocyte esterase. Urine beta-hCG negative. The patient is admitted for further management after being started on IV antibiotics in the form of aztreonam and Flagyl as the patient has multiple drug ALLERGIES 12/27/2020 and patient still has significant drainage from the surgical drain patient had laparoscopic surgical drainage of the abscess. Patient is presently on levofloxacin,metronidazole and Azetreonam PHYSICAL EXAMINATION: GENERAL: no acute distress. Complaining of pain in the left lower quadrant HEENT: Pupils are round and equally reacting to light. EOMI. No scleral icterus. No conjunctival pallor. CARDIOVASCULAR: S1 and S2 present. No murmurs, rubs, or gallops. PULMONARY: Bilateral breath sounds positive. No wheeze or crackles.. ABDOMEN: Soft, positive for tenderness in the left lower quadrant, normal bowel sounds. No guarding or rigidity. Surgical clips in place, surgical site looks clean and dry MUSCULOSKELETAL: No joint swelling or deformity. EXTREMITIES: No edema NEUROLOGICAL: Gross neurological examination did not reveal any focal deficits. SKIN:No rash ASSESSMENT Left lower quadrant abdominal pain secondary to abscess Postoperative abscess Leukocytosis Mild protein calorie malnutrition Elevated alkaline phosphatase PLAN: Patient has been started on antibiotics in the form of his aztreonam and Flagyl due to multiple drug ALLERGIES. Nothing by mouth and IV fluids She is being boarded for surgery this afternoon for Iand D Symptomatic management with antiemetics Protonix for GI prophylaxis Heparin for DVT prophylaxis Objective - Vital Signs Vital signs: Vital Signs Temp 97.7 F 12/27/20 06:51 Pulse 53 L 12/27/20 06:51 Resp 17 12/27/20 06:51 BP 97/62 12/27/20 06:51 Pulse Ox 97 12/27/20 06:51 Intake & Output 12/26/20 12/27/20 12/27/20 18:59 06:59 18:59 Intake Total 900 Output Total 85 160 Balance 815 -160 Intake: IV 900 Output: Drainage 160 Abdomen 160 Estimated Blood Loss 85 Other: # Voids 1 2 - Labs CBC & Chem 7: 12/27/20 08:00 12/27/20 08:00 Labs: Abnormal Lab Results - Last 24 Hours (Table) 12/27/20 12/27/20 Range/Units 08:00 08:00 Neutrophils # 9.0 H (1.3-7.7) k/uL Lymphocytes # 0.8 L (1.0-4.8) k/uL Glucose 163 H (74-99) mg/dL Total Protein 5.4 L (6.3-8.2) g/dL Albumin 2.9 L (3.5-5.0) g/dL Microbiology - Last 24 Hours (Table) 12/26/20 17:30 Gram Stain - Preliminary Aspirate Body Fluid Culture - Preliminary 12/26/20 17:30 Anaerobic Culture - Preliminary Aspirate 12/26/20 17:30 Fungal Culture - Preliminary Aspirate
--- NOTE | 2020-12-27 12:00 | CONS ---
CONSULTATION DATE OF SERVICE: 12/26/2020 REASON FOR CONSULTATION: Intraabdominal abscess. HISTORY OF PRESENT ILLNESS: The patient is a 30-year-old female who recently admitted at [facility] on December 21, 2020. The patient presented with abdominal pain. She was diagnosed with appendicitis, status post laparoscopic appendectomy. The patient was discharged home. A few hours later, the patient mentioned she could have a problem with abdominal pain since her surgery. The pain continued to get worse and the patient was having constipation with no bowel movement since her surgery. The patient did mention that with these symptoms, she did present to the ER yesterday where the patient did have enema given. After, the patient did have relief of constipation, and the patient was subsequently discharged home. However, few hours after getting home, the patient started having a fever of 103 degrees Fahrenheit, for which the patient presented back to the hospital. The patient complaining of abdominal pain to be sharp. Intensity was almost 10/10 in severity with associated nausea. Did have an episode of vomiting. Denies having any bowel movement since being in the hospital. With these symptoms, the patient was evaluated by the ER physician. On arrival to the ER, the patient was afebrile. The patient did have a white count of 13.3. Pulse rate was slightly elevated. Urine was negative. The patient did have a CT of abdomen and pelvis completed, which did show a complex large mass in the pelvis consistent with an abscess that may be communicated with loop of adjacent small bowel and some large bowel ileus. The patient was started on Levaquin and Flagyl because of her multiple antibiotic allergies. Infectious Disease was consulted for further management of antibiotic therapy. REVIEW OF SYSTEMS: Positive points have been mentioned in HPI. Rest of systems are negative. PAST MEDICAL HISTORY: No major illnesses except recent appendicitis. PAST SURGICAL HISTORY: Laparoscopic appendectomy. SOCIAL HISTORY: No history of smoking. Occasionally drinks. No drug use. FAMILY HISTORY: No pertinent findings noticed. ALLERGIES: MULTIPLE MEDICATIONS, INCLUDING CEFACLOR, PENICILLIN, SULFA, TRIMETHOPRIM, MINOCYCLINE, all of them with serum sickness. MEDICATIONS: The patient is currently on Tylenol, [place], she is on Dilaudid, Flagyl Levaquin, Protonix, Narcan, and IV fluid. PHYSICAL EXAMINATION: Blood pressure 118/71 with a pulse of 90, temperature 98.8, she is 98% room air. The patient is a middle-aged female, lying in bed, in no distress. No tachypnea or accessory muscles of respiration use. HEENT: Examination shows no pallor or scleral icterus. Oral mucous membrane is dry. NECK: Trachea central. No thyromegaly. LUNGS: Unlabored breathing, clear to auscultation anteriorly. No wheeze or crackle. HEART: S1, S2. Regular rate. ABDOMEN: Soft. She did have mild distention and tenderness, no guarding or rigidity. EXTREMITIES: No edema feet. SKIN: No rash or mass palpable. NEUROLOGIC: The patient is awake, alert, oriented. Mood and affect normal. LABS: Hemoglobin is 12.1, white count 13.3, BUN of 9, creatinine 0.70. DIAGNOSTIC IMPRESSION AND PLAN: Patient admitted to the hospital with sepsis. The patient had fever, elevated white count, tachycardia. Source abdominal abscess. The patient did have recent appendectomy, likely need to cover for the enteric gram-negative both aerobes and anaerobes. Patient did have multiple antibiotic allergies that will limit the number of antibiotics safe to use. PLAN: 1. Continue patient on Flagyl. Discontinue Levaquin and prescribe Azactam 2 grams q.8 hours. 2. Await laparoscopic or surgical drainage of this abscess, should be sent for culture. 3. Discharge medications based on the culture report. Thank you for this consultation. Will follow this patient along with you. MMCHARLYL / DEVORAN: [id number] /
--- NOTE | 2020-12-27 16:12 | PN ---
PROGRESS NOTE DATE OF SERVICE: 12/27/2020 REASON FOR FOLLOWUP: Pelvic abscess. INTERVAL HISTORY: The patient is currently afebrile, the patient is breathing comfortably. The patient denies having any chest pain. No shortness of breath or cough. Abdominal pain is currently controlled. She is status post laparoscopic drainage of the pelvic abscess, tolerated the procedure. PHYSICAL EXAMINATION: Blood pressure 97/60 with a pulse of 53, temperature 97.7. She is 97% on room air. GENERAL DESCRIPTION: Is a middle-aged female lying in bed, in no distress. RESPIRATORY SYSTEM: Unlabored breathing, clear to auscultation anteriorly. HEART: S1, S2. Regular rate. ABDOMEN: Soft, no tenderness, no rigidity. LABS: Hemoglobin is 10.5, white count 10.2, BUN of 7, creatinine 0.56. DIAGNOSTIC IMPRESSION AND PLAN: Patient with pelvic abscess with recent appendectomy likely abdominal source, status post laparoscopic drainage. Will wait for the culture to finalize. Continue Azactam and Flagyl. Discharge antibiotic on the basis of culture report. Continue supportive care. MMODL / IJN: [id number] /
[2020-12-28] MEDS: D5-0.45% NACL WITH KCL 20MEQ/L 1,000 ML IV SCH (01:27)
[2020-12-28] MEDS: metroNIDAZOLE-NS PMX 500 MG in SALINE 1 100ML.BAG IVPB SCH ×3 (02:18→19:08)
[2020-12-28] MEDS: HYDROmorphone 1 MG/ML 1 ML SYRINGE IVP PRN (05:36)
--- NOTE | 2020-12-28 07:56 | P.PN ---
Subjective Reason for consult - medical management Ms. Adam is a 30-year-old female with no significant past medical history, who went [place], and had left sided abdominal pain. She underwent laparoscopic appendectomy on December 21 and discharged shortly after the surgery. Patient states since having the surgery and she felt that her left- sided abdominal pain persisted and she was also having pressure like sensation and was feeling very bloated. She states that the abdominal pain is worse in the left lower quadrant, and whenever she has to pass gas and feels that gas is moving in her belly her pain is worse. She denied having any nausea or vomiting. Patient denied having any fevers chills or rigors. Patient was in the ER yesterday for continued abdominal pain and subjective fevers with one episode of vomiting. She had x-ray of the abdomen performed showing ileus and mild leukocytosis. She was given IV fluids and fifth and anymore she had large stool output and she felt better and she was discharged home. But after going home patient started to have fever and so she came back to the ER last night again. So the patient had a CAT scan of the abdomen and pelvis last night that showed complex large mass in the pelvis consistent with an abscess that may be communicating with lupus adjacent small bowel. And evidence of large bowel ileus with some fluid in the left paracolic gutter likely inflammatory. In the ER patient's T-max is 98.3, tachycardic at 110, blood pressure 124/79 and saturating at 100% on room air. Patient had labs drawn showing white count of 13.3, hemoglobin 12.7, platelets 284. Sodium 138, but urgency 0.7, chloride 106, bicarbonate 20, bili and 9, creatinine 0.7. UA is negative for nitrites and leukocyte esterase. Urine beta-hCG negative. The patient is admitted for further management after being started on IV antibiotics in the form of aztreonam and Flagyl as the patient has multiple drug ALLERGIES 12/27/2020 and patient still has significant drainage from the surgical drain patient had laparoscopic surgical drainage of the abscess. Patient is presently on levofloxacin,metronidazole and Azetreonam 11/28/2020 Patient has little bit of nausea secondary to antibiotics she remains on same antibiotics.. Patient was comparing of restless leg yesterday because of which patient was started on Requip with improved symptoms patient will be continued on same dose of Requip. IV fluids will be switched to D5 normal saline with the 10 of K. Basic metabolic profile will be obtained. Patient is passing gas. Constitutional: Denied any fatigue denied any fever. Cardio vascular: denied any chest pain, palpitations Gastrointestinal as mentioned above Pulmonary: Denied any shortness of breath cough Neurologic denied any new focal deficits All inpatient medications were reviewed and appropriate changes in these medications as dictated in the interval history and assessment and plan. PHYSICAL EXAMINATION: GENERAL: no acute distress. Complaining of pain in the left lower quadrant HEENT: Pupils are round and equally reacting to light. EOMI. No scleral icterus. No conjunctival pallor. CARDIOVASCULAR: S1 and S2 present. No murmurs, rubs, or gallops. PULMONARY: Bilateral breath sounds positive. No wheeze or crackles.. ABDOMEN: Soft, positive for tenderness in the left lower quadrant, normal bowel sounds. No guarding or rigidity. Surgical clips in place, surgical site looks clean and dry MUSCULOSKELETAL: No joint swelling or deformity. EXTREMITIES: No edema NEUROLOGICAL: Gross neurological examination did not reveal any focal deficits. SKIN:No rash ASSESSMENT Left lower quadrant abdominal pain secondary to abscess is post abscess drainage Postoperative abscess Leukocytosis -Restless leg syndrome Elevated alkaline phosphatase nonspecific elevation no further workup. PLAN: Patient has been started on antibiotics in the form of his aztreonam and Flagyl due to multiple drug ALLERGIES. Nothing by mouth and IV fluids She is being boarded for surgery this afternoon for Iand D Symptomatic management with antiemetics Protonix for GI prophylaxis Heparin for DVT prophylaxis Objective - Vital Signs Vital signs: Vital Signs Temp 98.2 F 12/28/20 06:57 Pulse 75 12/28/20 06:57 Resp 18 12/28/20 06:57 BP 89/55 12/28/20 06:57 Pulse Ox 96 12/28/20 06:57 Intake & Output 12/27/20 12/28/20 12/28/20 18:59 06:59 18:59 Output Total 75 Balance -75 Output: Drainage 75 Abdomen 75 Other: Voiding Method Toilet # Voids 2 1 - Labs CBC & Chem 7: 12/27/20 08:00 12/27/20 08:00 Labs: Abnormal Lab Results - Last 24 Hours (Table) 12/27/20 12/27/20 Range/Units 08:00 08:00 Neutrophils # 9.0 H (1.3-7.7) k/uL Lymphocytes # 0.8 L (1.0-4.8) k/uL Glucose 163 H (74-99) mg/dL Total Protein 5.4 L (6.3-8.2) g/dL Albumin 2.9 L (3.5-5.0) g/dL Microbiology - Last 24 Hours (Table) 12/26/20 17:30 Gram Stain - Preliminary Aspirate Body Fluid Culture - Preliminary Alpha Hemolytic Streptococcus
[2020-12-28] MEDS ORDERED: D5-0.9% NACL WITH KCL 20 MEQ/L 1,000 ML IV SCH (08:00)
[2020-12-28] MEDS ORDERED: POTASSIUM CHLORIDE IV SCH ×2 (08:00)
[2020-12-28] MEDS ORDERED: DEXTROSE IV SCH ×2 (08:00)
[2020-12-28] MEDS ORDERED: DEXTROSE 5%-0.9% NACL 1,000 ML with POTASSIUM CHLORIDE 20 MEQ IV SCH ×2 (08:00)
[2020-12-28] MEDS ORDERED: NACL IV SCH ×2 (08:00)
[2020-12-28] MEDS: ACETAMINOPHEN TAB 325 MG TAB PO PRN (08:10)
[2020-12-28] MEDS: PANTOPRAZOLE 40 MG TABLET PO SCH (08:11)
[2020-12-28] MEDS: AZTREONAM 2 GM in SODIUM CHLORIDE 0.9% 100 ML IVPB SCH ×3 (08:11→23:49)
[2020-12-28] MEDS: HEPARIN SODIUM,PORCINE/PF 5,000 UNIT/0.5 ML SYRINGE SQ SCH ×2 (08:11→17:15)
--- NOTE | 2020-12-28 08:51 | P.PN ---
Subjective Progress Note Date: 12/28/20 Principal diagnosis: Abdominal abscess Patient feels slightly better. She did have flatus once. No bowel movement. Some nausea. No vomiting. Still with abdominal cramps. Still feels bloated. SOUTH drain becoming more serous. She is afebrile. Objective - Vital Signs Vital signs: Vital Signs Temp 98.2 F 12/28/20 06:57 Pulse 75 12/28/20 06:57 Resp 18 12/28/20 06:57 BP 89/55 12/28/20 06:57 Pulse Ox 96 12/28/20 06:57 Intake & Output 12/27/20 12/28/20 12/28/20 18:59 06:59 18:59 Output Total 75 Balance -75 Output: Drainage 75 Abdomen 75 Other: Voiding Method Toilet # Voids 2 1 - Exam Abdomen: Soft, distended, mild tenderness, incisions clean and dry - Labs CBC & Chem 7: 12/27/20 08:00 12/27/20 08:00 Labs: Abnormal Lab Results - Last 24 Hours (Table) 12/27/20 Range/Units 08:00 Glucose 163 H (74-99) mg/dL Total Protein 5.4 L (6.3-8.2) g/dL Albumin 2.9 L (3.5-5.0) g/dL Microbiology - Last 24 Hours (Table) 12/26/20 17:30 Gram Stain - Preliminary Aspirate Body Fluid Culture - Preliminary Alpha Hemolytic Streptococcus Assessment and Plan (1) Postoperative abscess Narrative/Plan: Patient gradually improving. Continue broad-spectrum antibiotics. Follow cultures. Keep nothing by mouth except for ice and popsicles. Add Toradol for pain control. Ambulate. Current Visit: Yes Status: Acute Code(s): T81.49XA - INFECTION FOLLOWING A PROCEDURE, OTHER SURGICAL SITE, INIT SNOMED Code(s): 049139349
[2020-12-28] MEDS: KETOROLAC 15 MG/ML 1 ML VIAL IVP SCH ×3 (11:10→23:49)
[2020-12-28] MEDS: NACL IV SCH ×4 (11:13→20:55)
[2020-12-28] MEDS: DEXTROSE IV SCH ×4 (11:13→20:55)
[2020-12-28] MEDS: POTASSIUM CHLORIDE IV SCH ×4 (11:13→20:55)
[2020-12-28] MEDS ORDERED: LORazepam 2 MG/ML INJ IV PRN (20:22)
[2020-12-28] MEDS ORDERED: LORazepam 0.5 MG TAB PO PRN (20:24)
[2020-12-28] MEDS: ONDANSETRON 4 MG/2 ML VIAL IVP PRN (20:55)
[2020-12-29] MEDS: HEPARIN SODIUM,PORCINE/PF 5,000 UNIT/0.5 ML SYRINGE SQ SCH ×4 (00:14→23:54)
[2020-12-29] MEDS: metroNIDAZOLE-NS PMX 500 MG in SALINE 1 100ML.BAG IVPB SCH ×3 (02:48→19:12)
[2020-12-29] MEDS: NACL IV SCH ×4 (02:50→07:05)
[2020-12-29] MEDS: DEXTROSE IV SCH ×4 (02:50→07:05)
[2020-12-29] MEDS: POTASSIUM CHLORIDE IV SCH ×4 (02:50→07:05)
[2020-12-29] MEDS: KETOROLAC 15 MG/ML 1 ML VIAL IVP SCH ×4 (05:43→23:54)
--- NOTE | 2020-12-29 06:45 | PN ---
PROGRESS NOTE DATE OF SERVICE: 12/28/2020 REASON FOR FOLLOWUP: Pelvic abscess. INTERVAL HISTORY: Patient is afebrile. The patient is breathing comfortably. The patient denies having any chest pain, shortness of breath or cough. Abdominal pain is currently controlled. No nausea, no vomiting or diarrhea. PHYSICAL EXAMINATION: Her blood pressure is 98/68 with a pulse of 71, temperature 98.5. She is 96% on room air. General description is a middle-aged female lying in bed in no distress. Respiratory system: Unlabored breathing. Clear to auscultation anteriorly. Heart S1, S2. Regular rate and rhythm. Abdomen: Soft, mildly tender. No guarding. No rigidity. LABS: No new labs have been obtained today. Abdominal culture with alpha hemolytic Streptococcus. DIAGNOSTIC IMPRESSION AND PLAN: Patient with pelvic abscess with recent appendicitis status post appendectomy and drainage of the pelvic abscess. Culture with alpha hemolytic Streptococcus. Patient did have MULTIPLE ANTIBIOTIC ALLERGIES and is currently covered with Azactam and Flagyl. Plan is to finish therapy with oral Levaquin and Flagyl as the patient is requesting to go the IV antibiotic therapy. Continue supportive care. MMODL / IJN: [id number] /
[2020-12-29] MEDS: PANTOPRAZOLE 40 MG TABLET PO SCH (07:06)
[2020-12-29] MEDS: AZTREONAM 2 GM in SODIUM CHLORIDE 0.9% 100 ML IVPB SCH ×3 (07:06→23:46)
[2020-12-29 07:50] LABS: Basophils % (A) 0 %; Eosinophils # (A) 0.2 k/uL (0-0.7); Eosinophils % (A) 3 %; HCT 36.4 % (34.0-46.0); HGB 12.5 gm/dL (11.4-16.0); Lymphocytes # (A) 1.7 k/uL (1.0-4.8); Lymphocytes % (A) 23 %; MCH 30.7 pg (25.0-35.0); MCHC 34.3 g/dL (31.0-37.0); MCV 89.5 fL (80.0-100.0); Mean Platelet Volume 7.5; Monocytes # (A) 0.4 k/uL (0-1.0); Monocytes % (A) 5 %; Neutrophils # (A) 4.8 k/uL (1.3-7.7); Neutrophils % (A) 66 %; Platelet Count 335 k/uL (150-450); RBC 4.07 m/uL (3.80-5.40); RDW 13.1 % (11.5-15.5); WBC 7.2 k/uL (3.8-10.6)
[2020-12-29 08:08] LABS: African American GFR (CKD) >90 (>60 ml/min/1.73 sqM); Anion Gap 6 mmol/L; Blood Urea Nitrogen 8 mg/dL (7-17); Calcium 8.6 mg/dL (8.4-10.2); Carbon Dioxide 24 mmol/L (22-30); Chloride 109 mmol/L (98-107); Glucose 104 mg/dL (74-99); Non-African American GFR(CKD) >90 (>60 ml/min/1.73 sqM); Potassium 4.4 mmol/L (3.5-5.1); Sodium 139 mmol/L (137-145)
--- NOTE | 2020-12-29 13:52 | P.PN ---
Subjective Progress Note Date: 12/29/20 Reason for consult - medical management Ms. dAam is a 30-year-old female with no significant past medical history, who went up north on a vacation trip, and had left sided abdominal pain. She underwent laparoscopic appendectomy on December 21 and discharged shortly after the surgery. Patient states since having the surgery and she felt that her left- sided abdominal pain persisted and she was also having pressure like sensation and was feeling very bloated. She states that the abdominal pain is worse in the left lower quadrant, and whenever she has to pass gas and feels that gas is moving in her belly her pain is worse. She denied having any nausea or vomiting. Patient denied having any fevers chills or rigors. Patient was in the ER yesterday for continued abdominal pain and subjective fevers with one episode of vomiting. She had x-ray of the abdomen performed showing ileus and mild leukocytosis. She was given IV fluids and fifth and anymore she had large stool output and she felt better and she was discharged home. But after going home patient started to have fever and so she came back to the ER last night again. So the patient had a CAT scan of the abdomen and pelvis last night that showed complex large mass in the pelvis consistent with an abscess that may be communicating with lupus adjacent small bowel. And evidence of large bowel ileus with some fluid in the left paracolic gutter likely inflammatory. In the ER patient's T-max is 98.3, tachycardic at 110, blood pressure 124/79 and saturating at 100% on room air. Patient had labs drawn showing white count of 13.3, hemoglobin 12.7, platelets 284. Sodium 138, but urgency 0.7, chloride 106, bicarbonate 20, bili and 9, creatinine 0.7. UA is negative for nitrites and leukocyte esterase. Urine beta-hCG negative. The patient is admitted for further management after being started on IV antibiotics in the form of aztreonam and Flagyl as the patient has multiple drug ALLERGIES 12/27/2020 and patient still has significant drainage from the surgical drain patient had laparoscopic surgical drainage of the abscess. Patient is presently on levofloxacin,metronidazole and Azetreonam 12/28/2020 Patient has little bit of nausea secondary to antibiotics she remains on same antibiotics.. Patient was comparing of restless leg yesterday because of which patient was started on Requip with improved symptoms patient will be continued on same dose of Requip. IV fluids will be switched to D5 normal saline with the 10 of K. Basic metabolic profile will be obtained. Patient is passing gas. 12/29/2020 Patient is seen in follow-up this morning stating she feels much better continues to have some abdominal tenderness and SOUTH drain noted although feels much improved. Patient denies any nausea or vomiting. Patient is requesting to go home. Patient being started on clear liquids and tolerating thus far. Nathalia ent reports the passing gas but denies a bowel movement as of yet. White blood count improved at 7.2 and hemoglobin is stable at 12.5. Sodium is 139 with a potassium of 4.4 and current creatinine is 0.66. Patient is afebrile. Constitutional: Denied any fatigue denied any fever. Cardio vascular: denied any chest pain, palpitations Gastrointestinal as mentioned above Pulmonary: Denied any shortness of breath cough Neurologic denied any new focal deficits All inpatient medications were reviewed and appropriate changes in these medications as dictated in the interval history and assessment and plan. Objective - Vital Signs Vital signs: Vital Signs Temp 98 F 12/29/20 07:28 Pulse 53 L 12/29/20 07:28 Resp 17 12/29/20 07:28 BP 101/67 12/29/20 07:28 Pulse Ox 96 12/29/20 07:28 Intake & Output 12/28/20 12/29/20 12/29/20 18:59 06:59 18:59 Output Total 120 Balance -120 Output: Drainage 120 Abdomen 120 Other: Voiding Method Toilet Toilet # Voids 1 1 - Exam GENERAL: no acute distress. Well-developed, well-nourished. HEENT: Pupils are round and equally reacting to light. EOMI. No scleral icterus. No conjunctival pallor. CARDIOVASCULAR: S1 and S2 present. No murmurs, rubs, or gallops. PULMONARY: Bilateral breath sounds positive. No wheeze or crackles.. ABDOMEN: Soft, positive for tenderness in the left lower quadrant, normal bowel sounds. No guarding or rigidity. SOUTH drain noted. Surgical clips in place, surgical site looks clean and dry MUSCULOSKELETAL: No joint swelling or deformity. EXTREMITIES: No edema NEUROLOGICAL: Gross neurological examination did not reveal any focal deficits. SKIN:No rash - Labs CBC & Chem 7: 12/29/20 07:07 12/29/20 07:07 Labs: Abnormal Lab Results - Last 24 Hours (Table) 12/29/20 Range/Units 07:07 Chloride 109 H (98-107) mmol/L Glucose 104 H (74-99) mg/dL Microbiology - Last 24 Hours (Table) 12/26/20 17:30 Gram Stain - Final Aspirate Body Fluid Culture - Final Alpha Hemolytic Streptococcus Assessment and Plan Assessment: -Left lower quadrant abdominal pain secondary to abscess is post abscess drainage -Postoperative abscess status post appendectomy -Leukocytosis -Restless leg syndrome -Elevated alkaline phosphatase nonspecific elevation no further workup. -GI prophylaxis -DVT prophylaxis -Full code PLAN: Patient continues on IV antibiotics with infectious disease following closely. Patient is on aztreonam and Flagyl and will likely discharge on oral antibiotics. Patient denies any nausea or vomiting and states abdominal tenderness has improved and is being started on clear liquids as she states she feels hungry. Patient is status post incision and drainage of the abscess and tolerated well. Patient is afebrile. Today's labs within normal limits. Will continue to follow along with surgery during hospitalization. Thank you for this consultation.
--- NOTE | 2020-12-29 14:19 | P.PN ---
Subjective Progress Note Date: 12/29/20 Principal diagnosis: Abdominal abscess Patient doing well today. Her pain is improved. She is passing flatus. Feels less bloated. She is afebrile. White blood cell count is normal. Objective - Vital Signs Vital signs: Vital Signs Temp 98 F 12/29/20 07:28 Pulse 53 L 12/29/20 07:28 Resp 17 12/29/20 07:28 BP 101/67 12/29/20 07:28 Pulse Ox 96 12/29/20 07:28 Intake & Output 12/28/20 12/29/20 12/29/20 18:59 06:59 18:59 Output Total 120 Balance -120 Output: Drainage 120 Abdomen 120 Other: Voiding Method Toilet Toilet # Voids 1 1 - Exam Abdomen: Soft, much less distended, mild tenderness, drain serous - Labs CBC & Chem 7: 12/29/20 07:07 12/29/20 07:07 Labs: Abnormal Lab Results - Last 24 Hours (Table) 12/29/20 Range/Units 07:07 Chloride 109 H (98-107) mmol/L Glucose 104 H (74-99) mg/dL Microbiology - Last 24 Hours (Table) 12/26/20 17:30 Gram Stain - Final Aspirate Body Fluid Culture - Final Alpha Hemolytic Streptococcus Assessment and Plan (1) Postoperative abscess Narrative/Plan: Patient doing well at this time. Gradually advance diet. Possible discharge tomorrow. Current Visit: Yes Status: Acute Code(s): T81.49XA - INFECTION FOLLOWING A PROCEDURE, OTHER SURGICAL SITE, INIT SNOMED Code(s): 320614660
--- NOTE | 2020-12-29 23:05 | PN ---
PROGRESS NOTE DATE OF SERVICE: 12/29/2020 REASON FOR FOLLOW UP: Pelvic abscess. INTERVAL COURSE: The patient is afebrile. The patient is breathing comfortably. Slight nausea but no vomiting. No chest pain, shortness of breath or cough. Abdominal pain is currently controlled. PHYSICAL EXAMINATION: Blood pressure 101/69, pulse of 73, temperature 98.1. She is 98% on room air. General description is a middle-aged female lying in no distress. Respiratory system: Unlabored breathing. Clear to auscultation anteriorly. Heart S1, S2. Regular rate. Abdomen is soft, no tenderness. LABS: Hemoglobin is 12.5, white count 7.2, BUN of 8, creatinine 0.66. Abdominal cultures with strep and anaerobes. DIAGNOSTIC IMPRESSION AND PLAN: Patient with pelvic abscess, status post laparoscopic drainage, culture with strep and anaerobes. She did have multiple antibiotic allergies, however we will therapy with oral Levaquin and Flagyl. Prescription sent to pharmacy and close outpatient followup. MMODL / IJN: [id number] /
[2020-12-30] MEDS: NACL IV SCH ×4 (01:27→06:45)
[2020-12-30] MEDS: DEXTROSE IV SCH ×4 (01:27→06:45)
[2020-12-30] MEDS: POTASSIUM CHLORIDE IV SCH ×4 (01:27→06:45)
[2020-12-30] MEDS: metroNIDAZOLE-NS PMX 500 MG in SALINE 1 100ML.BAG IVPB SCH ×2 (03:05→10:46)
[2020-12-30] MEDS: KETOROLAC 15 MG/ML 1 ML VIAL IVP SCH ×2 (05:59→10:33)
[2020-12-30] MEDS: HEPARIN SODIUM,PORCINE/PF 5,000 UNIT/0.5 ML SYRINGE SQ SCH (06:45)
[2020-12-30 07:12] VITALS: BP 111/75; PULSE 64; RESP 16; TEMP 97.8
[2020-12-30] MEDS: PANTOPRAZOLE 40 MG TABLET PO SCH (07:41)
[2020-12-30] MEDS: AZTREONAM 2 GM in SODIUM CHLORIDE 0.9% 100 ML IVPB SCH (07:41)
[2020-12-30] MEDS ORDERED: IBUPROFEN 600 MG TAB PO PRN (10:32)
--- NOTE | 2020-12-30 12:07 | P.DS ---
<Mandy Vogel - Last Filed: 12/30/20 12:04> Providers Expected date of discharge: 12/30/20 Hospital Course: Discharge diagnosis 1. Abdominal abscess status post laparoscopic drainage of abdominal abscess Hospital course 30-year-old female presents to the hospital yesterday twice with complaints of abdominal pain. She underwent laparoscopic appendectomy on Tuesday and was discharged shortly after surgery was performed. She says that since the surgery she has felt some mild nausea and bloating. Some lower abdominal pain. Some pressure-like sensation. Yesterday she had a enema with bowel function and felt a little bit better. She went home from the ER only to have a high fever and come back to the ER for that reason. CAT scan was performed. Her white blood cell count elevated at 13. CAT scan demonstrated a greater than 6 cm abscess between small bowel loops containing both liquid and air. Patient is status post laparoscopic drainage of abdominal abscess. She tolerated surgery well. Her pain is controlled. She is tolerating diet. She is up and ambulating. She is passing flatus. No difficulty urinating. Afebrile. Her white count has normalized. Incision sites clean dry and intact. She'll be discharged home with SOUTH drain. Patient is stable for discharge. Please refer to chart for any further details. Physician Linux Programmer note has been reviewed by physician. Signing provider agrees with the documented findings, assessment, and plan of care. Patient Condition at Discharge: Stable Plan - Discharge Summary Discharge Rx Participant: No New Discharge Prescriptions: New metroNIDAZOLE [Flagyl] 500 mg PO TID #42 tab Levofloxacin [Levaquin] 750 mg PO DAILY 14 Days #14 tab Docusate [Colace] 100 mg PO BID #30 capsule Ibuprofen [Motrin] 600 mg PO Q8HR PRN #30 tab PRN Reason: Pain Acetaminophen Tab [Tylenol Tab] 650 mg PO Q4H PRN #30 tablet PRN Reason: Pain Continue ISOtretinoin [Accutane] 20 mg PO HS@2029 Discontinued Ibuprofen [Motrin Ib] 400 mg PO Q8H PRN PRN Reason: Pain HYDROcodone/APAP 5-325MG [[place] 5-325] 1 tab PO Q4H PRN PRN Reason: Pain Discharge Medication List ISOtretinoin [Accutane] 20 mg PO HS@202912/25/20 [History] Levofloxacin [Levaquin] 750 mg PO DAILY 14 Days #14 tab 12/29/20 [Rx] metroNIDAZOLE [Flagyl] 500 mg PO TID #42 tab 12/29/20 [Rx] Acetaminophen Tab [Tylenol Tab] 650 mg PO Q4H PRN #30 tablet 12/30/20 [Rx] Docusate [Colace] 100 mg PO BID #30 capsule 12/30/20 [Rx] Ibuprofen [Motrin] 600 mg PO Q8HR PRN #30 tab 12/30/20 [Rx] Follow up Appointment(s)/Referral(s): Seth William MD [Medical Doctor] - 01/07/21 2:30 pm None,Stated [Primary Care Provider] - 1-2 days Maryanne Giron MD [STAFF PHYSICIAN] - 01/06/21 3:00 pm Patient Instructions/Handouts: [facility] Drain Care (DC), Abscess (GEN), Laparoscopic Appendectomy (DC) Activity/Diet/Wound Care/Special Instructions: No driving while taking [place] No lifting over 10 pounds You may shower. No soaking or tub baths for 2 weeks Very light activity until you are reevaluated at your follow up appointment with your surgeon Keep a log of SOUTH drain output and bring with you to your follow-up appointment Milk/strip drains 2-3 times a day Discharge Disposition: HOME SELF-CARE <Seth William - Last Filed: 12/30/20 14:57> Providers Date of admission: 12/26/20 00:15 Attending physician: Seth William Consults: 12/26/20 09:26 Consult Physician Routine Consulting Provider: Santhosh Gaxiola Consult Reason/Comments: Medical management Do you want consulting provider notified?: Yes Consult Physician Routine Consulting Provider: Maryanne Giron Consult Reason/Comments: Abdominal abscess Do you want consulting provider notified?: Yes Primary care physician: Stated None - Discharge Diagnosis(es) (1) Postoperative abscess Status: Acute Hospital Course: As above. Patient doing well today. May discharge. Follow-up one week.
--- NOTE | 2020-12-30 13:21 | PN ---
PROGRESS NOTE DATE OF SERVICE: 12/30/2020 REASON FOR FOLLOW UP: Pelvic abscess. INTERVAL HISTORY: The patient is afebrile. The patient is breathing comfortably. Denies having any chest pain, shortness of breath, cough. Abdominal pain is currently controlled. She is passing gas. No bowel movement. PHYSICAL EXAMINATION: Blood pressure 111/75, pulse of 64, temp is 97.8. She is 96% on room air. General description is a middle-aged female lying in bed in no distress. Respiratory system: Unlabored breathing, clear to auscultation anteriorly. Heart S1, S2. Regular rate and rhythm. Abdomen: Soft, no tenderness. LABS: No new labs have been obtained today. Abdominal culture with Strep and anaerobes. DIAGNOSTIC IMPRESSION AND PLAN: The patient with pelvic abscess status post laparoscopic drainage of the abscess. Cultures with strep and anaerobes. Finish therapy with oral Levaquin and Flagyl and close outpatient followup. MMODL / IJN: [id number] /
--- NOTE | 2020-12-30 14:35 | P.PN ---
Subjective Progress Note Date: 12/30/20 Reason for consult - medical management Ms. Adam is a 30-year-old female with no significant past medical history, [place], and had left sided abdominal pain. She underwent laparoscopic appendectomy on December 21 and discharged shortly after the surgery. Patient states since having the surgery and she felt that her left- sided abdominal pain persisted and she was also having pressure like sensation and was feeling very bloated. She states that the abdominal pain is worse in the left lower quadrant, and whenever she has to pass gas and feels that gas is moving in her belly her pain is worse. She denied having any nausea or vomiting. Patient denied having any fevers chills or rigors. Patient was in the ER yesterday for continued abdominal pain and subjective fevers with one episode of vomiting. She had x-ray of the abdomen performed showing ileus and mild leukocytosis. She was given IV fluids and fifth and anymore she had large stool output and she felt better and she was discharged home. But after going home patient started to have fever and so she came back to the ER last night again. So the patient had a CAT scan of the abdomen and pelvis last night that showed complex large mass in the pelvis consistent with an abscess that may be communicating with lupus adjacent small bowel. And evidence of large bowel ileus with some fluid in the left paracolic gutter likely inflammatory. In the ER patient's T-max is 98.3, tachycardic at 110, blood pressure 124/79 and saturating at 100% on room air. Patient had labs drawn showing white count of 13.3, hemoglobin 12.7, platelets 284. Sodium 138, but urgency 0.7, chloride 106, bicarbonate 20, bili and 9, creatinine 0.7. UA is negative for nitrites and leukocyte esterase. Urine beta-hCG negative. The patient is admitted for further management after being started on IV antibiotics in the form of aztreonam and Flagyl as the patient has multiple drug ALLERGIES 12/27/2020 and patient still has significant drainage from the surgical drain patient had laparoscopic surgical drainage of the abscess. Patient is presently on levofloxacin,metronidazole and Azetreonam 12/28/2020 Patient has little bit of nausea secondary to antibiotics she remains on same antibiotics.. Patient was comparing of restless leg yesterday because of which patient was started on Requip with improved symptoms patient will be continued on same dose of Requip. IV fluids will be switched to D5 normal saline with the 10 of K. Basic metabolic profile will be obtained. Patient is passing gas. 12/29/2020 Patient is seen in follow-up this morning stating she feels much better continues to have some abdominal tenderness and SOUTH drain noted although feels much improved. Patient denies any nausea or vomiting. Patient is requesting to go home. Patient being started on clear liquids and tolerating thus far. Nathalia ent reports the passing gas but denies a bowel movement as of yet. White blood count improved at 7.2 and hemoglobin is stable at 12.5. Sodium is 139 with a potassium of 4.4 and current creatinine is 0.66. Patient is afebrile. 12/30/2020 Patient is seen in follow-up able to tolerate diet still continuing to eat small amounts with some abdominal discomfort but feels much improved. Patient will continue on oral antibiotics upon discharge and infectious disease is following. Patient continues to have gas but no reports of bowel movements as of yet. Patient is requesting to go home today. No reports of nausea or vomiting noted. Constitutional: Denied any fatigue denied any fever. Cardio vascular: denied any chest pain, palpitations Gastrointestinal as mentioned above Pulmonary: Denied any shortness of breath cough Neurologic denied any new focal deficits All inpatient medications were reviewed and appropriate changes in these medications as dictated in the interval history and assessment and plan. Objective - Vital Signs Vital signs: Vital Signs Temp 97.8 F 12/30/20 07:11 Pulse 64 12/30/20 07:11 Resp 16 12/30/20 07:11 BP 111/75 12/30/20 07:11 Pulse Ox 96 12/30/20 07:11 Intake & Output 12/29/20 12/30/20 12/30/20 18:59 06:59 18:59 Output Total 45 25 Balance -45 -25 Output: Drainage 45 25 Abdomen 45 25 Other: Voiding Method Toilet Toilet Toilet - Exam GENERAL: no acute distress. Well-developed, well-nourished. HEENT: Pupils are round and equally reacting to light. EOMI. No scleral icterus. No conjunctival pallor. CARDIOVASCULAR: S1 and S2 present. No murmurs, rubs, or gallops. PULMONARY: Bilateral breath sounds positive. No wheeze or crackles.. ABDOMEN: Soft, positive for tenderness in the lower quadrants, normal bowel sounds. No guarding or rigidity. SOUTH drain noted. Surgical clips in place, surgical site looks clean and dry MUSCULOSKELETAL: No joint swelling or deformity. EXTREMITIES: No edema NEUROLOGICAL: Gross neurological examination did not reveal any focal deficits. SKIN:No rash - Labs CBC & Chem 7: 12/29/20 07:07 12/29/20 07:07 Labs: Microbiology - Last 24 Hours (Table) 12/26/20 17:30 Anaerobic Culture - Final Aspirate Anaerobic Gm Negative Bacilli Anaerobic Gm Negative Bacilli#2 Assessment and Plan Assessment: -Left lower quadrant abdominal pain secondary to abscess is post abscess drainage -Postoperative abscess status post appendectomy -Leukocytosis -Restless leg syndrome -Elevated alkaline phosphatase nonspecific elevation no further workup. -GI prophylaxis -DVT prophylaxis -Full code PLAN: Patient continues on IV antibiotics with infectious disease following closely. Patient is on aztreonam and Flagyl and is being discharged on oral antibiotics. Patient denies any nausea or vomiting and states abdominal tenderness has impr janet and able to tolerate advancement in diet. Patient is status post incision and drainage of the abscess and tolerated well. Patient is afebrile. Patient reports passing gas but no bowel movement and instructed patient to increase activity as tolerated. Will continue to follow along with surgery during hospitalization. Thank you for this consultation. Patient is scheduled to be discharged today.
== END 2020-12-30 13:37 | disposition home or self-care (01) | DRG 856 ==
LOC: EC 22:02 → 4SSUR 12-26 00:15
PROVIDERS: ADMIT Surgery; ATTEND Surgery
PROC: 0W9J4ZZ Drainage of Pelvic Cavity, Percutaneous Endoscopic Approach (ICD-10-PCS; principal; 2020-12-26 15:20)
DX: T81.43XA Infection following a procedure, organ and space surgical site, initial encounter (principal); K65.1 Peritoneal abscess; E44.1 Mild protein-calorie malnutrition; K56.7 Ileus, unspecified; G25.81 Restless legs syndrome; R74.8 Abnormal levels of other serum enzymes; Z68.26 Body mass index [BMI] 26.0-26.9, adult; Z79.899 Other long term (current) drug therapy; Z90.49 Acquired absence of other specified parts of digestive tract; Z87.19 Personal history of other diseases of the digestive system; Z98.890 Other specified postprocedural states; Y83.6 Removal of other organ (partial) (total) as the cause of abnormal reaction of the patient, or of later complication, without mention of misadventure at the time of the procedure; Z88.1 Allergy status to other antibiotic agents; Z88.0 Allergy status to penicillin; Z88.2 Allergy status to sulfonamides
CPT/HCPCS: 36415; 74177; 80048; 80053; 81003; 81025; 82150; 82550; 83605; 83690; 85025; 85610; 85730; 87070; 87075; 87077; 87102; 87186; 87205; 99285

== ENCOUNTER → 2021-03-16 | Outpatient (CLI) | payer OTHER ==
[2021-03-17 01:12] LABS: Basophils # (A) 0.06 X 10*3/uL (0.00-0.10); Basophils % (A) 0.6 %; Eosinophils # (A) 0.16 X 10*3/uL (0.04-0.35); Eosinophils % (A) 1.5 %; HCT 46.3 % (37.2-46.3); HGB 15.6 g/dL (12.0-15.0); Lymphocytes # (A) 2.79 X 10*3/uL (0.90-5.00); Lymphocytes % (A) 26.3 %; MCH 30.6 pg (27.0-32.0); MCHC 33.7 g/dL (32.0-37.0); MCV 90.8 fL (80.0-97.0); Mean Platelet Volume 11.4 fL (9.5-12.2); Monocytes # (A) 0.56 X 10*3/uL (0.20-1.00); Monocytes % (A) 5.3 %; Neutrophils # (A) 6.99 X 10*3/uL (1.80-7.70); Platelet Count 350 X 10*3/uL (140-440); RDW 13.2 % (11.5-14.5); WBC 10.59 X 10*3/uL (4.50-10.00)
[2021-03-17 06:11] LABS: ALT 27 U/L (8-44); AST 21 U/L (13-35); Cholesterol 177 mg/dL (0-200); HCG,Quantitative Serum <2.0 mIU/mL
== END ==
LOC: LABWHC1 16:31
PROVIDERS: ATTEND Nurse Practitioner Family
DX: L70.0 Acne vulgaris (principal)
CPT/HCPCS: 36415; 82465; 84450; 84460; 84478; 84702; 85025

== ENCOUNTER → 2021-04-02 | Outpatient (CLI) | payer OTHER ==
[2021-04-02 23:52] LABS: Basophils # (A) 0.04 X 10*3/uL (0.00-0.10); Basophils % (A) 0.5 %; Eosinophils # (A) 0.13 X 10*3/uL (0.04-0.35); Eosinophils % (A) 1.8 %; HCT 45.5 % (37.2-46.3); HGB 15.5 g/dL (12.0-15.0); Lymphocytes # (A) 2.49 X 10*3/uL (0.90-5.00); Lymphocytes % (A) 33.9 %; MCH 30.5 pg (27.0-32.0); MCHC 34.1 g/dL (32.0-37.0); MCV 89.6 fL (80.0-97.0); Mean Platelet Volume 10.8 fL (9.5-12.2); Monocytes # (A) 0.41 X 10*3/uL (0.20-1.00); Monocytes % (A) 5.6 %; Neutrophils # (A) 4.25 X 10*3/uL (1.80-7.70); Neutrophils % (A) 57.9 %; Platelet Count 341 X 10*3/uL (140-440); RBC 5.08 X 10*6/uL (4.10-5.20); RDW 12.8 % (11.5-14.5); WBC 7.34 X 10*3/uL (4.50-10.00)
== END | disposition home or self-care (01) ==
LOC: LABWHC1 16:37
PROVIDERS: ATTEND Dermatology
DX: L70.0 Acne vulgaris (principal)
CPT/HCPCS: 36415; 85025

== ENCOUNTER → 2023-08-27 | Outpatient (CLI) | payer OTHER ==
[2023-08-28 09:04] LABS: Chol/HDL Ratio 2.99 Ratio; Glucose 104 mg/dL (70-110); LDL Cholesterol,Calculated 97.6 mg/dL (0.0-131.0); T4, Free (Free Thyroxine) 1.66 ng/dL (0.80-1.80)
== END | disposition home or self-care (01) ==
LOC: LABWHC1 11:42
PROVIDERS: ATTEND Family Medicine
DX: Z00.00 Encounter for general adult medical examination without abnormal findings (principal); Z83.49 Family history of other endocrine, nutritional and metabolic diseases
CPT/HCPCS: 36415; 80061; 82947; 84439; 84443; 84481

== ENCOUNTER → 2023-11-03 | Outpatient (CLI) | payer OTHER ==
[2023-11-03 12:06] LABS: Basophils % (A) 1 %; Eosinophils # (A) 0.1 k/uL (0-0.7); Eosinophils % (A) 1 %; HCT 46.2 % (34.0-46.0); Lymphocytes # (A) 1.9 k/uL (1.0-4.8); Lymphocytes % (A) 28 %; MCH 30.6 pg (25.0-35.0); MCHC 32.6 g/dL (31.0-37.0); MCV 94.1 fL (80.0-100.0); Mean Platelet Volume 8.2; Monocytes # (A) 0.3 k/uL (0-1.0); Monocytes % (A) 4 %; Neutrophils # (A) 4.5 k/uL (1.3-7.7); Neutrophils % (A) 66 %; Platelet Count 282 k/uL (150-450); RBC 4.91 m/uL (3.80-5.40); RDW 12.7 % (11.5-15.5); WBC 6.9 k/uL (3.8-10.6)
== END | disposition home or self-care (01) ==
LOC: LABPAT 11:19
PROVIDERS: ATTEND Obstetrics & Gynecology
DX: Z01.812 Encounter for preprocedural laboratory examination (principal); O02.1 Missed abortion
CPT/HCPCS: 36415; 85025; 86850; 86900; 86901

== ENCOUNTER 2023-11-04 09:01 | Day surgery (SDC) | payer OTHER ==
[~2023-11-04 09:01] MED LIST: HYDROmorphone 0.5 MG/0.5 ML SYRINGE IVP PRN; Pre Op ABX Message 1 EACH MISC MISCELLANE ONE
[2023-11-04] MEDS: LIDOCAINE 1% (10MG/ML) FOR IV START INTRADERMA ONE (09:43)
[2023-11-04] MEDS: LACTATED RINGERS 1,000 ML IV SCH (09:44)
[2023-11-04] MEDS: DEXAMETHASONE SOD PHOSPHATE 4 MG/ML 1 ML VIAL IV ONE (09:45)
[2023-11-04] MEDS: ONDANSETRON 4 MG/2 ML VIAL IVP ONE (09:45)
[2023-11-04] MEDS: MIDAZOLAM 2 MG/2 ML VIAL IVP ONE (09:54)
--- NOTE | 2023-11-04 10:04 | P.HPIHPCON ---
History of Present Illness H&P Date: 11/04/23 Chief Complaint: Missed Ms. Tenorio is a 32 year old who was diagnosed 11/01 with an 8 week missed today by US. CRL measured 19mm without any cardiac activity. The patient has had some light vaginal bleeding but has not passed any products. Consent for Procedure: I have explained the operation/procedure to the patient, including the risks, benefits, side effects, alternative therapies (including not receiving the p roposed treatment or service), the likelihood of the patient achieving his/her goals, and potential recuperation problems for the procedure/sedation/analgesia, as well as any blood products, if indicated. I also explained to the patient the risks, benefits and side effects of the alternatives, as well as the risks related to not receiving the proposed procedure, care, treatment, or services. Past Medical History Past Medical History: No Reported History Additional Past Medical History / Comment(s): miscarriage History of Any Multi-Drug Resistant Organisms: None Reported Past Surgical History: Appendectomy Past Anesthesia/Blood Transfusion Reactions: No Reported Reaction Smoking Status: Never smoker Medications and Allergies Home Medications Medication Instructions Recorded Confirmed Type Vit No.179/Iron/Folic 1 each PO DAILY 11/03/23 11/03/23 History [ Tablet] Allergies Allergy/AdvReac Type Severity Reaction Status Date / Time cefaclor [From Ceclor] Allergy Rash/Hives Verified 11/03/23 09:29 minocycline Allergy Rash/Hives Verified 11/03/23 09:29 Penicillins Allergy Rash/Hives Verified 11/03/23 09:29 Sulfa (Sulfonamide Allergy Rash/Hives Verified 11/03/23 09:29 Antibiotics) sulfamethoxazole Allergy Rash/Hives Verified 11/03/23 09:29 [From Bactrim] trimethoprim [From Bactrim] Allergy Rash/Hives Verified 11/03/23 09:29 Surgical - Exam Vital Signs Temp Pulse Resp BP Pulse Ox 99.0 F 92 20 120/80 98 11/04/23 09:32 11/04/23 09:32 11/04/23 09:32 11/04/23 09:32 11/04/23 09:32 Focused physical exam is performed. This is a healthy-appearing woman. Breathing is non-labored. Cervical exam was closed/long/thick per the OB PA in the office Tuesday. Extremities are non-tender and non-edematous. Assessment and Plan Assessment: 32 year old with 8 week missed AB Plan: Risks, benefits, and alternatives to suction D&C were discussed with the patient including risk of bleeding, infection, uterine perforation, and damage to surrounding structures. The patient understands these risks and desires to proceed. all questions answered.
[2023-11-04] MEDS ORDERED: KETOROLAC 15 MG/ML 1 ML VIAL ONE (10:09)
[2023-11-04] MEDS ORDERED: LIDOCAINE 1% INJ 10MG/ML (20 ML MDV) ONE (10:09)
[2023-11-04] MEDS ORDERED: MIDAZOLAM 2 MG/2 ML VIAL ONE (10:09)
[2023-11-04] MEDS ORDERED: PROPOFOL 10 MG/ML 20 ML VIAL IV ONE (10:09)
[2023-11-04] MEDS ORDERED: fentaNYL (PF) 50 MCG/ML 2 ML AMP ONE (10:09)
[2023-11-04 10:29] VITALS: RESP 16
[2023-11-04 11:28] VITALS: TEMP 96.9
--- NOTE | 2023-11-04 11:37 | P.OP ---
Date of Procedure: 11/04/23 Preoperative Diagnosis: Missed at 8 weeks Postoperative Diagnosis: Same Procedure(s) Performed: Suction D&C Implants: None Anesthesia: MIMI Surgeon: Gabrielle Contreras Estimated Blood Loss (ml): 50 IV fluids (ml): 700 Urine output (ml): 59 Pathology: none sent Condition: stable Disposition: same day Indications for Procedure: Ms. Tenorio is a 32 year old diagnosed with a missed on 11/01 by US with CRL measuring 19mm without any cardiac activity, diagnostic for missed AB. The patient has been having some light vaginal bleeding but has not passed any products. Risks, benefits, and alternatives to suction D&C were discussed with the patient including risks of bleeding, infection, damage to surrounding structures. The patient understands these risks and desires to pro ceed with surgery as discussed. All questions answered. Operative Findings: Exam under anesthesia reveals an anteverted, 12 week sized uterus. Moderate products of conception are obtained with suction D&C. The patient is Rh positive. Description of Procedure: The patient was taken to the operating room where a general anesthetic was administered. She was then positioned in the dorsal lithotomy position and prepped and draped in the normal sterile fashion. Once the anesthetic was found to be adequate, a bimanual exam was performed under anesthetic. Next, a weighted speculum was placed in the vagina. The anterior lip of cervix was grasped with the tenaculum and was carefully dilated to accomodate the suction curette with yessica dilators. An 8mm suction curette was connected to the suction and was placed in the cervix and a suction curettage was performed. Two passes were made with the suction curettage. Next, a sharp curettage was performed obtaining a small amount of tissue and this was followed by third suction curettage. After the procedure, the tenaculum was removed. The cervix was hemostatic. The weighted speculum was removed. After the procedure, a second bimanual exam was performed and the patient's uterus had significantly decreased in size.The patient was taken from the operating room in stable condition after she was geraldine aned. She will be discharged home today and will follow up in the office in 2 weeks.
[2023-11-04 12:24] VITALS: BP 105/74; PULSE 70
== END 2023-11-04 12:19 | disposition home or self-care (01) ==
LOC: OR 09:01
PROVIDERS: ATTEND Obstetrics & Gynecology
DX: O02.1 Missed abortion (principal); Z88.0 Allergy status to penicillin; Z88.1 Allergy status to other antibiotic agents; Z88.2 Allergy status to sulfonamides; Z90.49 Acquired absence of other specified parts of digestive tract
CPT/HCPCS: 88305; 59820; J2250; J1100; J2405; J2001; J3010; J1885; J2704

== ENCOUNTER → 2024-01-10 | Outpatient (CLI) | payer OTHER | END | disposition home or self-care (01) | LOC: LABWHC1 15:55 | PROVIDERS: ATTEND Obstetrics & Gynecology Maternal & Fetal Medicine | DX: O99.019 Anemia complicating pregnancy, unspecified trimester (principal); D64.9 Anemia, unspecified; Z3A.00 Weeks of gestation of pregnancy not specified | CPT/HCPCS: 36415; 82728 ==